=== PATIENT | female | born 1955 | race Caucasian/White ===

== ENCOUNTER 2019-12-22 07:43 | Inpatient (IN) | payer MEDICARE ==
[~2019-12-22] VITALS: Ht 162.6 cm; Wt 85.9 kg
[2019-12-22 07:47] VITALS: BP 173/98
[2019-12-22 08:26] LABS: ABSOLUTE BASOPHILS 0.1 thou/uL (0.0-0.2); ABSOLUTE EOSINOPHILS 0.3 thou/uL (0.0-0.7); ABSOLUTE LYMPHOCYTES 2.6 thou/uL (0.8-5.3); ABSOLUTE MONOCYTES 0.6 thou/uL (0.0-1.2); ABSOLUTE NEUTROPHILS 6.4 thou/uL (1.6-8.1); BASOPHILS 0.9 %; EOSINOPHILS 2.7 %; HEMOGLOBIN 11.1 gm/dL (12.0-15.0); LYMPHOCYTES 26.5 %; MCH 23.8 pg (26.0-34.0); MCHC 30.7 g/dL (28.0-37.0); MCV 77.4 fL (80.0-100.0); MONOCYTES 5.8 %; MPV 7.8 fl. (7.2-11.1); NUCLEATED RBCS 0 /100WBC; PLATELET COUNT* 361 thou/uL (150-400); POLYS 64.1 %; RBC 4.65 mil/uL (4.20-5.00); RDW-CV 18.4 % (10.5-14.5); WBC 9.9 thou/uL (4.0-11.0)
[2019-12-22] MEDS ORDERED: LASIX 40 MG TAB40 MG PO (08:35)
[2019-12-22] MEDS ORDERED: METFORMIN HCL500 M3 PO (08:35)
[2019-12-22] MEDS ORDERED: MAGNESIUM SULF100 MG PO (08:36)
[2019-12-22] MEDS ORDERED: [UNRECOGNIZED DRUG - OTHER] (08:36)
[2019-12-22] MEDS ORDERED: GLYBURIDE 5 MG T5 M1 PO (08:36)
[2019-12-22 08:37] LABS: CALCIUM 8.3 mg/dL (8.5-10.1); CREATININE 1.1 mg/dL (0.6-1.3)
[2019-12-22] MEDS ORDERED: CARVEDILOL25 MG PO (08:39)
[2019-12-22] MEDS ORDERED: DIOVAN (08:39)
[2019-12-22] MEDS ORDERED: BENADRYL25 MG PO (08:40)
[2019-12-22] MEDS ORDERED: PLAVIX 75 MG TA75 MG PO (08:40)
[2019-12-22 08:48] LABS: ALBUMIN 3.2 g/dL (3.4-5.0); MAGNESIUM 1.2 mg/dL (1.8-2.4); TOTAL BILIRUBIN 0.3 mg/dL (<0.1-1.0); TOTAL PROTEIN 7.6 g/dL (6.4-8.2)
[2019-12-22 10:15] VITALS: BP 89/65
[2019-12-22 10:25] VITALS: BP 122/72
[2019-12-22 12:48] LABS: PROTIME 10.6 Seconds (9.20-11.50)
[2019-12-22 16:00] VITALS: BP 121/61
--- NOTE | 2019-12-22 16:45 | EKG ---
[place] [address] ELECTROCARDIOGRAM REPORT Name: VALERIO BECK Room: [address] IN M.R.#: [id number] Admission: 12/22/19 Attend Phys: Demetrio Jameson, Discharge: Date of : 51 Date of Service: 12/22/19 0758 Report #: [id number] THIS REPORT FOR: //name// [facility] ED Test Date: 2019-12-22 Test Time: 07:58:08 Pat Name: VALERIO BECK Department: Room: [facility] Gender: F Clinical Educator: KENN : 1955 Requested By: Ilan Torres Order Number: [id number] MD: Rk Linton Measurements Intervals [place] Rate: 120 P: 69 HI: 90 QRS: 123 QRSD: 116 T: -87 QT: 348 QTc: 492 Interpretive Statements Ventricular-paced rhythm No further analysis attempted due to paced rhythm Compared to ECG 05/14/2008 12:36:21 Sinus rhythm no longer present Electronically Signed On 12-22-2019 16:45:27 ENVIRONMENTAL SERVICES TECHNICIAN by Rk Linton [email or web address] <ELECTRONICALLY SIGNED> By: Rk Linton MD, [facility] 12/22/19 1645 0758 [id number] Rk Linton MD, [facility] /EPI
[2019-12-22 20:30] VITALS: BP 135/78
[2019-12-23] VITALS (7 sets, daily range): BP systolic 109–131; BP diastolic 48–73
[2019-12-23 06:35] LABS: HEMOGLOBIN 10.4 gm/dL (12.0-15.0); MCH 23.4 pg (26.0-34.0); MCHC 30.7 g/dL (28.0-37.0); MCV 76.3 fL (80.0-100.0); MPV 8.3 fl. (7.2-11.1); RBC 4.46 mil/uL (4.20-5.00); RDW-CV 18.6 % (10.5-14.5); WBC 11.1 thou/uL (4.0-11.0)
[2019-12-23 06:44] LABS: ALBUMIN 3.2 g/dL (3.4-5.0); CALCIUM 8.3 mg/dL (8.5-10.1); CREATININE 0.8 mg/dL (0.6-1.3); MAGNESIUM 1.5 mg/dL (1.8-2.4); POTASSIUM 4.2 mmol/L (3.5-5.1); TOTAL BILIRUBIN 0.3 mg/dL (<0.1-1.0); TOTAL PROTEIN 7.4 g/dL (6.4-8.2)
[2019-12-24 00:16] VITALS: BP 116/59
[2019-12-24 03:51] VITALS: BP 113/61
[2019-12-24 04:50] LABS: HEMATOCRIT 33.1 % (37.0-47.0); HEMOGLOBIN 10.3 gm/dL (12.0-15.0); MCH 23.7 pg (26.0-34.0); MCV 76.3 fL (80.0-100.0); MPV 8.3 fl. (7.2-11.1); RBC 4.34 mil/uL (4.20-5.00); RDW-CV 18.6 % (10.5-14.5); WBC 16.7 thou/uL (4.0-11.0)
[2019-12-24 05:15] LABS: ALBUMIN 3.1 g/dL (3.4-5.0); CALCIUM 8.5 mg/dL (8.5-10.1); CREATININE 0.7 mg/dL (0.6-1.3); MAGNESIUM 1.7 mg/dL (1.8-2.4); POTASSIUM 4.2 mmol/L (3.5-5.1); TOTAL BILIRUBIN 0.2 mg/dL (<0.1-1.0); TOTAL PROTEIN 7.1 g/dL (6.4-8.2)
[2019-12-24 08:30] VITALS: BP 129/77
[2019-12-24 12:27] VITALS: BP 144/59
[2019-12-24 17:31] VITALS: BP 130/61
[2019-12-24 21:00] VITALS: BP 129/57
[2019-12-25] VITALS: BP 114/54
[2019-12-25 04:00] VITALS: BP 120/62
[2019-12-25 04:39] LABS: HEMATOCRIT 32.3 % (37.0-47.0); HEMOGLOBIN 10.1 gm/dL (12.0-15.0); MCH 23.8 pg (26.0-34.0); MCHC 31.2 g/dL (28.0-37.0); MCV 76.3 fL (80.0-100.0); MPV 8.2 fl. (7.2-11.1); RBC 4.24 mil/uL (4.20-5.00); RDW-CV 18.7 % (10.5-14.5); WBC 15.2 thou/uL (4.0-11.0)
[2019-12-25 05:03] LABS: CALCIUM 8.4 mg/dL (8.5-10.1); CREATININE 0.8 mg/dL (0.6-1.3); MAGNESIUM 1.7 mg/dL (1.8-2.4); POTASSIUM 3.6 mmol/L (3.5-5.1)
[2019-12-25 08:00] VITALS: BP 132/68
[2019-12-25] MEDS ORDERED: CEFDINIR300 MG PO (12:34)
[2019-12-25] MEDS ORDERED: PREDNISONE 20 M20 MG PO (12:36)
[2019-12-25 12:38] VITALS: BP 124/55
[2019-12-25 13:27] VITALS: BP 124/55
== END 2019-12-25 13:57 | disposition home or self-care (01) | DRG 177 ==
LOC: M.ERS 07:43 → M.ORTHSURG 09:19 → M.TBA-ER 09:19 → M.2W 10:31 → M.ORTHSURG 19:52 → M.2W 12-23 17:40
PROVIDERS: Emergency Medicine Emergency Medical Services; ADMIT Internal Medicine; ATTEND Internal Medicine
PROC: 5A09357 Assistance with Respiratory Ventilation, Less than 24 Consecutive Hours, Continuous Positive Airway Pressure (ICD-10-PCS; principal; 2019-12-22)
DX: J15.6 Pneumonia due to other Gram-negative bacteria (principal); J96.01 Acute respiratory failure with hypoxia; J44.1 Chronic obstructive pulmonary disease with (acute) exacerbation; J44.0 Chronic obstructive pulmonary disease with (acute) lower respiratory infection; E44.1 Mild protein-calorie malnutrition; E87.2 Acidosis; E66.9 Obesity, unspecified; E83.42 Hypomagnesemia; E11.65 Type 2 diabetes mellitus with hyperglycemia; T38.0X5A Adverse effect of glucocorticoids and synthetic analogues, initial encounter; Z20.828 Contact with and (suspected) exposure to other viral communicable diseases; Z88.6 Allergy status to analgesic agent; Z88.0 Allergy status to penicillin; Z68.32 Body mass index [BMI] 32.0-32.9, adult; Z88.8 Allergy status to other drugs, medicaments and biological substances; Z88.1 Allergy status to other antibiotic agents; Y92.89 Other specified places as the place of occurrence of the external cause

== ENCOUNTER 2020-02-24 22:19 | Inpatient (IN) | payer MEDICARE ==
[~2020-02-24] VITALS: Ht 170.2 cm; Wt 88.0 kg
[~2020-02-24 22:19] MED LIST: BENADRYL25 MG PO; CARVEDILOL25 MG PO; CEFDINIR300 MG PO; DIOVAN; GLYBURIDE 5 MG T5 M1 PO; LASIX 40 MG TAB40 MG PO; MAGNESIUM SULF100 MG PO; METFORMIN HCL500 M3 PO; PLAVIX 75 MG TA75 MG PO; PREDNISONE 20 M20 MG PO; [UNRECOGNIZED DRUG - OTHER]
[2020-02-24 22:20] VITALS: BP 148/76
[2020-02-24 22:51] LABS: ABSOLUTE BASOPHILS 0.1 thou/uL (0.0-0.2); ABSOLUTE EOSINOPHILS 0.3 thou/uL (0.0-0.7); ABSOLUTE LYMPHOCYTES 3.6 thou/uL (0.8-5.3); ABSOLUTE MONOCYTES 0.9 thou/uL (0.0-1.2); BASOPHILS 0.7 %; EOSINOPHILS 2.4 %; HEMATOCRIT 32.8 % (37.0-47.0); HEMOGLOBIN 10.3 gm/dL (12.0-15.0); MCH 24.8 pg (26.0-34.0); MCHC 31.3 g/dL (28.0-37.0); MCV 79.3 fL (80.0-100.0); MONOCYTES 7.9 %; MPV 7.5 fl. (7.2-11.1); NUCLEATED RBCS 0 /100WBC; PLATELET COUNT* 372 thou/uL (150-400); RBC 4.14 mil/uL (4.20-5.00); RDW-CV 17.6 % (10.5-14.5); WBC 11.9 thou/uL (4.0-11.0)
[2020-02-24 22:59] LABS: PROTIME 10.7 Seconds (9.20-11.50)
[2020-02-24 23:01] LABS: CALCIUM 8.8 mg/dL (8.5-10.1); POTASSIUM 4.2 mmol/L (3.5-5.1)
[2020-02-24 23:02] LABS: BE -2.3 mmol/L (-2 to +3); pH 7.303 (7.340-7.450)
[2020-02-24 23:04] LABS: PCO2 50.6 mmHg (35.0-45.0); PO2 145.7 mmHg (75.0-100.0)
[2020-02-24 23:12] LABS: ALBUMIN 3.1 g/dL (3.4-5.0); TOTAL BILIRUBIN 0.2 mg/dL (<0.1-1.0)
[2020-02-25 02:31] LABS: URINE BILIRUBIN NEGATIVE (Negative); URINE BLOOD NEGATIVE (Negative); URINE CLARITY CLEAR; URINE COLOR YELLOW; URINE GLUCOSE-RANDOM 3+ (Negative); URINE KETONES NEGATIVE (Negative); URINE LEUKOCYTES-REFLEX NEGATIVE (Negative); URINE NITRITE-REFLEX NEGATIVE (Negative); URINE PROTEIN 2+ (Negative); URINE UROBILINOGEN 0.2 E.U./dl (0.2-1.0)
[2020-02-25 03:15] LABS: BACTERIA-REFLEX 1-9 Few /HPF (None Seen); CASTS None Seen /LPF (None Seen); CRYSTALS None Seen /LPF (None Seen); SQUAMOUS 0-3 Few /LPF (0-3); URINE RBC None Seen /HPF (0-2); URINE WBC-REFLEX 0-5 Rare /HPF (0-5)
[2020-02-25 05:51] VITALS: BP 136/87
[2020-02-25 10:00] VITALS: BP 128/59
--- NOTE | 2020-02-25 10:25 | NUR ---
ER ADMIT TO RM 227 PATIENT TO RM VIA CART O2 3L NC SBA TO BED ORIENTED TO RM AND CALL LIGHT DENIES PAIN AT THIS TIME
[2020-02-25 10:30] VITALS: BP 139/55
[2020-02-25 12:00] VITALS: BP 171/69
--- NOTE | 2020-02-25 14:29 | EKG ---
[place] [address] ELECTROCARDIOGRAM REPORT Name: VALERIO BECK Room: [place] [address] ADM IN M.R.#: [id number] Admission: 02/25/20 Attend Phys: Demetrio Jameson, Discharge: Date of : 51 Date of Service: 02/24/202308 Report #: [id number] THIS REPORT FOR: //name// [facility] ED Test Date: 2020-02-24 Test Time: 23:09:25 Pat Name: VALERIO BECK Department: Room: [facility] Gender: F Mesh Worker: ANANDA : 1955 Requested By: Ibeth Kwon Order Number: [id number] MD: Rk Linton Measurements Intervals [place] Rate: 97 P: 69 ID: 157 QRS: 31 QRSD: 129 T: 95 QT: 401 QTc: 510 Interpretive Statements Atrial-sensed ventricular-paced rhythm No further analysis attempted due to paced rhythm Compared to ECG 12/22/2019 07:58:08 No significant changes Electronically Signed On 02-25-2020 14:29:14 CARTON MARKER MACHINE by Rk Linton [email or web address] <ELECTRONICALLY SIGNED> By: Rk Linton MD, [facility] 02/25/20 1429 2309 [id number] Rk Linton MD, [facility] /EPI
[2020-02-25 16:00] VITALS: BP 125/73
[2020-02-25 20:44] VITALS: BP 138/63
[2020-02-26 00:01] VITALS: BP 126/67
[2020-02-26 04:00] VITALS: BP 109/60
[2020-02-26 04:12] LABS: HEMATOCRIT 31.6 % (37.0-47.0); MCH 24.7 pg (26.0-34.0); MCHC 31.7 g/dL (28.0-37.0); MCV 77.7 fL (80.0-100.0); MPV 7.8 fl. (7.2-11.1); RBC 4.06 mil/uL (4.20-5.00); RDW-CV 17.1 % (10.5-14.5)
[2020-02-26 04:21] LABS: CALCIUM 9.1 mg/dL (8.5-10.1); CREATININE 0.9 mg/dL (0.6-1.3); MAGNESIUM 2.1 mg/dL (1.8-2.4); POTASSIUM 4.7 mmol/L (3.5-5.1)
[2020-02-26 07:30] VITALS: BP 126/44
--- NOTE | 2020-02-26 07:59 | NUR ---
PT IS ABLE TO COMMUNICATE HER NEEDS TO STAFF EFFECTIVELY. SHE HAS DENIED THE NEED FOR PAIN MEDICATION UP TO 0700 THIS MORNING.
--- NOTE | 2020-02-26 10:07 | NUR ---
CM SPOKE TO THE PT TO DISCUSS CM ASSESSMENT. PT A&O, AND INDEPENDENT WITH ADL'S. PT RESIDES AT HOME WITH SPOUSE. PT USES HOME OXYGEN AT 2L AT HOME, AND HAS A NEBULIZER. PT HAS PAST HX OF HH. PT HAS 0 HX OF SNF. CM WILL REMAIN AVAILABLE TO ASSIST AND FOLLOW NEEDED.
[2020-02-26 11:30] VITALS: BP 136/52
--- NOTE | 2020-02-26 13:00 | NUR ---
PT M/S STATUS AT THIS TIME. PUBLIC HEALTH CLINICAL NURSE SPECIALIST DC'D BY UNIT SEC.
--- NOTE | 2020-02-26 13:00 | NUR ---
A&OX 4, PWD. LUNGS DIMINISHED LEFT BASE OTHER EVANS CLEAR. 02 ON AT 3L PER NC. HEART TONES REGULAR, PPM LEFT CHEST. +BS X 4 QUADS. PEDAL PULSES PRESENT NO EDEMA NOTED. SITTING UP IN BED TALKING TO AND WATCHING T.V. NO C/O AT THIS TIME. BENADRYL ORDERED ON APR. CALL LIGHT WITHIN REACH. WILL CONTINUE TO MONITOR.
--- NOTE | 2020-02-26 15:46 | NUR ---
PT TRANSFERING TO ROOM 311 VIA W/C WITH 02 ON AT 3L PER NC. ACCOMPANING HER. ALL BELONGINGS SENT WITH HER. REPORT GIVEN TO DEDRA REIS. REPEAT BLOOD SUGAR 325. NO C/O AT THIS TIME.
[2020-02-26 15:50] VITALS: BP 134/64
--- NOTE | 2020-02-26 18:47 | NUR ---
PATIENT ARRIVED TO UNIT VIA W/C FROM TELE UNIT AT APPROX. 1548. THIS NURSE AGREES WITH REASSESSMENT COMPLETED BY PREVIOUS NURSE. PATIENT'S VSS AND DENIES PAIN AT TIME OF ARRIVAL. PATIENT IS A&OX4, PLEASANT AND COOPERATIVE WITH CARES. O2@3 VIA NASAL CANNULA, LUNG SOUNDS DIMINISHED. PATIENT HAS PACEMAKER. SALINE LOCKED IV LOCATED IN LEFT AC AND IS PATENT. PATIENT CURRENTLY LYING IN BED RESTING. CALL LIGHT AND PERSONAL ITEMS WITHIN REACH.
[2020-02-26 19:52] VITALS: BP 114/57
--- NOTE | 2020-02-27 04:26 | NUR ---
PT A&O, VSS ON 2L NC, PT UP AD [place], NO C/O PAIN THIS SHIFT. PT SLEEPING WELL, HOURLY ROUNDINGS COMPLETE, WILL CONTINUE TO MONITOR.
[2020-02-27] MEDS ORDERED: MUCINEX600 MG PO (07:49)
[2020-02-27] MEDS ORDERED: PROAIR HFA8.5 GM INH (07:49)
[2020-02-27] MEDS ORDERED: PREDNISONE 20 M20 MG PO (07:49)
[2020-02-27] MEDS ORDERED: OMEPRAZOLE40 MG PO (07:49)
[2020-02-27] MEDS ORDERED: ADVAIR 100-501 EACH INH (07:49)
[2020-02-27] MEDS ORDERED: LEVOFLOXACIN500 MG PO (07:49)
[2020-02-27 08:15] VITALS: BP 100/60
[2020-02-27 10:45] VITALS: BP 100/60
[2020-02-27 11:54] VITALS: BP 100/60
--- NOTE | 2020-02-27 12:01 | NUR ---
PATIENT DISCHARGED FROM UNIT AT 1145. ALERT AND ORIENTED X 4. VITAL SIGNS STABLE ON ROOM AIR. UP INDEPENDENTLY IN ROOM. IV DISCONTINUED. DENIES PAIN AND NAUSEA AT THIS TIME. DISCHARGE INSTRUCTIONS AND MEDICATION INFORMATION GIVEN TO PATIENT. LEFT WITH ALL BELONGINGS. PATIENT LEFT WITH VIA CAR.
== END 2020-02-27 11:45 | disposition home or self-care (01) | DRG 189 ==
LOC: M.ERS 22:19 → M.TBA-ER 02-25 01:57 → M.2W 02-25 10:20 → M.3W 02-26 15:48
PROVIDERS: Emergency Medicine; ADMIT Internal Medicine; ATTEND Internal Medicine
DX: J96.21 Acute and chronic respiratory failure with hypoxia (principal); R65.11 Systemic inflammatory response syndrome (SIRS) of non-infectious origin with acute organ dysfunction; J44.1 Chronic obstructive pulmonary disease with (acute) exacerbation; J96.22 Acute and chronic respiratory failure with hypercapnia; Z20.822 Contact with and (suspected) exposure to COVID-19; E66.9 Obesity, unspecified; R91.1 Solitary pulmonary nodule; E11.65 Type 2 diabetes mellitus with hyperglycemia; G47.33 Obstructive sleep apnea (adult) (pediatric); J40 Bronchitis, not specified as acute or chronic; Z95.0 Presence of cardiac pacemaker; Z88.1 Allergy status to other antibiotic agents; Z88.0 Allergy status to penicillin; Z88.8 Allergy status to other drugs, medicaments and biological substances; Z68.30 Body mass index [BMI] 30.0-30.9, adult; Z87.891 Personal history of nicotine dependence; Z79.899 Other long term (current) drug therapy

== ENCOUNTER 2020-03-19 06:16 | Inpatient (IN) | payer MEDICARE ==
[~2020-03-19] VITALS: Ht 167.6 cm; Wt 95.7 kg
[~2020-03-19 06:16] MED LIST changes: +ADVAIR 100-501 EACH INH; +LEVOFLOXACIN500 MG PO; +MUCINEX600 MG PO; +OMEPRAZOLE40 MG PO; +PROAIR HFA8.5 GM INH
[2020-03-19 06:18] VITALS: BP 162/86
[2020-03-19] MEDS ORDERED: TRULICITY1.5 MG/0.5 SUBQ (06:39)
[2020-03-19 06:47] LABS: ABSOLUTE BASOPHILS 0.1 thou/uL (0.0-0.2); ABSOLUTE EOSINOPHILS 0.2 thou/uL (0.0-0.7); ABSOLUTE LYMPHOCYTES 2.3 thou/uL (0.8-5.3); ABSOLUTE NEUTROPHILS 8.5 thou/uL (1.6-8.1); BASOPHILS 0.8 %; HEMATOCRIT 34.4 % (37.0-47.0); HEMOGLOBIN 10.9 gm/dL (12.0-15.0); LYMPHOCYTES 18.8 %; MCH 24.1 pg (26.0-34.0); MCHC 31.7 g/dL (28.0-37.0); MCV 76.1 fL (80.0-100.0); MONOCYTES 8.4 %; MPV 6.9 fl. (7.2-11.1); NUCLEATED RBCS 0 /100WBC; PLATELET COUNT* 595 thou/uL (150-400); RBC 4.52 mil/uL (4.20-5.00); RDW-CV 16.8 % (10.5-14.5); WBC 12.2 thou/uL (4.0-11.0)
[2020-03-19 06:57] LABS: PROTIME 10.8 Seconds (9.20-11.50)
[2020-03-19 06:58] LABS: CALCIUM 8.8 mg/dL (8.5-10.1); CREATININE 0.9 mg/dL (0.6-1.3); POTASSIUM 4.3 mmol/L (3.5-5.1)
[2020-03-19 07:06] LABS: ALBUMIN 2.9 g/dL (3.4-5.0); MAGNESIUM 1.2 mg/dL (1.8-2.4); TOTAL BILIRUBIN 0.1 mg/dL (<0.1-1.0); TOTAL PROTEIN 7.9 g/dL (6.4-8.2)
[2020-03-19 07:18] LABS: URINE BILIRUBIN NEGATIVE (Negative); URINE BLOOD NEGATIVE (Negative); URINE CLARITY CLEAR; URINE COLOR YELLOW; URINE GLUCOSE-RANDOM 3+ (Negative); URINE KETONES NEGATIVE (Negative); URINE LEUKOCYTES-REFLEX NEGATIVE (Negative); URINE NITRITE-REFLEX NEGATIVE (Negative); URINE PROTEIN 2+ (Negative); URINE UROBILINOGEN 0.2 E.U./dl (0.2-1.0)
[2020-03-19 07:44] LABS: BACTERIA-REFLEX None Seen /HPF (None Seen); SQUAMOUS 4-10 Moderate /LPF (0-3); URINE RBC None Seen /HPF (0-2); URINE WBC-REFLEX None Seen /HPF (0-5)
[2020-03-19 07:45] LABS: CASTS None Seen /LPF (None Seen); CRYSTALS None Seen /LPF (None Seen); MUCUS 0-3 Light strn/LPF (None Seen)
--- NOTE | 2020-03-19 08:57 | EKG ---
[place] [address] ELECTROCARDIOGRAM REPORT Name: VALERIO BECK Room: [facility]#: [id number] Admission: 03/19/20 Attend Phys: Discharge: Date of : 51 Date of Service: 03/19/20620 Report #: [id number] THIS REPORT FOR: //name// [facility] ED Test Date: 2020-03-19 Test Time: 06:21:30 Pat Name: VALERIO BECK Department: Room: Gender: F Er Tech: : 1955 Requested By: Ibeth Kwon Order Number: [id number] MD: Jose Hearn Measurements Intervals [place] Rate: 110 P: -1 TX: 132 QRS: 28 QRSD: 120 T: -20 QT: 381 QTc: 516 Interpretive Statements Atrial-sensed ventricular-paced rhythm sinus tachycardia No further analysis attempted due to paced rhythm Compared to ECG 02/24/2020 23:09:25 rate has increased Electronically Signed On 03-19-2020 8:57:09 UNDERCOVER AGENT by Jose Hearn [email or web address] <ELECTRONICALLY SIGNED> By: Jose Hearn MD, [facility] 03/19/20 0857 0 0 Jose Hearn MD, [facility] /EPI
[2020-03-19 12:32] VITALS: BP 112/84
--- NOTE | 2020-03-19 15:00 | NUR ---
PT.KNOWN FROM PREVIOUS ADMISSION. SHE LIVES WITH HER . IS INDEPENDENT BUT NOT VERY ACTIVE. SHE HAS O2 FROM [facility] AT HOME. WEARS AT 2L/NC. ALSO HAS A NEBULIZER. CM WILL FOLLOW FOR ANY DISCHARGE NEEDS.
[2020-03-19 15:10] VITALS: BP 112/84
--- NOTE | 2020-03-19 17:42 | CON ---
[address] [address] CONSULTATION Name: VALERIO BECK Room: [address] M.R.#: [id number] Admission: 03/19/20 Attend Phys: Liliana Valdes MD Discharge: Date of : 51 Report #: [id number] THIS REPORT FOR: cc: Polo Badillo APRN, William R APRN ~ Jose Hearn MD [facility] DATE OF SERVICE: 03/19/2020 CARDIOLOGY CONSULTATION HISTORY OF PRESENT ILLNESS: The patient is a 64-year-old white female, who I was asked to see in the hospital today after she complained of chest pain. The patient has an extensive and complicated past medical history. The history is obtained from the patient and her . The patient states that in 2010, she had a drug-eluting stent placed in the right coronary artery at [facility]. She was found to have evidence of a nonischemic cardiomyopathy that she felt was secondary to a virus. She had a biventricular defibrillator inserted for primary prevention in 2011 in [facility]. She underwent a generator change apparently 5 years later. She has never had a discharge from her defibrillator. The patient notes that when she presented in 2011, she was swollen, but denied a history of chest pain or shortness of breath. She was fatigue at that time. Recently, she was found to have a carotid stenosis of 90%. She was scheduled to have carotid stenting placed in [facility]; that was delayed because of the COVID pandemic. As part of a preop evaluation, she apparently had a pharmacologic nuclear stress test in [facility]. She denied any recent chest pain, shortness of breath, edema, or palpitations. She notes recently if she lies down, she feels a heaviness in her chest. It is not related to exertion or meals. There is no radiation of the pain into her arms. She took some antacid; it did seem to help. She has had no bleeding. Denied any fever or cough. She did have some belching that seem to help. Because of this heaviness, she finally drove herself to the Emergency Room today and is admitted for further evaluation and treatment. PAST MEDICAL HISTORY: Otherwise, she has had cholecystectomy, hysterectomy, carpal tunnel surgery, shoulder surgery, elbow surgery, diabetes, and hyperlipidemia. No history of hypertension. CURRENT MEDICATIONS: Include carvedilol, Lasix, metformin. She was taken off of valsartan in the past because it made her back hurt. She could not tolerate statin drugs in the past because of muscle aches. She also takes clopidogrel. SHE IS ALSO ALLERGIC TO AN ANTIBIOTIC. FAMILY HISTORY: Her [place] [address] CONSULTATION Name: VALERIO BECK Room: [address] MBraeden#: [id number] Admission: 03/19/20 Attend Phys: Liliana Valdes MD Discharge: Date of : 51 Report #: [id number] SOCIAL HISTORY: She is . She and her live in [place]. She does not work at this time. She is not very active. Quit smoking 6 months ago. No alcohol abuse. REVIEW OF SYSTEMS: She apparently had a TIA in the past affecting her eyes. No history of asthma. She has had enlarged liver in the past. No kidney disease. No cancer. No psychiatric illness. No chronic skin condition. PHYSICAL EXAMINATION: GENERAL: Revealed a middle-aged female, who appeared in no distress. VITAL SIGNS: She had a blood pressure of 140/70, pulse is 90. She is afebrile. HEENT: She was anicteric. Conjunctivae pink. Mucous membranes moist. NECK: Veins do not appear distended. Bilateral carotid bruits are heard. CHEST: Clear to auscultation. HEART: Regular rate and rhythm. ABDOMEN: Soft. EXTREMITIES: Had no edema. Posterior tibial pulse 2+ bilaterally. SKIN: Cool and dry. NEUROLOGIC: Nonfocal. RADIOLOGICAL DATA: ECG shows P-wave sensing and ventricular capture. Her workup in the Emergency Room: She had a portable chest x-ray that showed normal heart size, interstitial prominence, defibrillator in place. CT scan of the chest using a PE protocol showed no pulmonary embolus, some atelectasis, mild vascular congestion, emphysematous changes. LABORATORY WORK: Sodium 131, creatinine 0.9, glucose was 254. Troponins all 0.06. BNP 1670. White blood cell count 12.2, hemoglobin 10.9, hematocrit 34.3. Her COVID antigen stat test showed none detected. Urinalysis: Negative for blood and negative for leukocytes. IMPRESSION AND RECOMMENDATIONS: 1. Chest pressure. Atypical for angina. Suspect noncardiac. Before I would perform any additional cardiac evaluation, I would attempt to obtain the recent pharmacologic nuclear stress test that was done in [facility]. 2. Previous stent. The patient does take Plavix. 3. History of cardiomyopathy. The patient is followed at [facility]. She appears stable at this time on a beta-zehra. She could not tolerate an ARB because of back pain. The patient is on Lasix. 4. Diabetes. The patient is on oral medications. 5. Hyperlipidemia. The patient cannot tolerate statin drugs. 6. Previous transient ischemic attack. The patient has carotid stenosis. She is planning on having carotid stenting done in [facility] in the [address] [address] CONSULTATION Name: VALERIO BECK Room: [address] M.R.#: [id number] Admission: 03/19/20 Attend Phys: Liliana Valdes MD Discharge: Date of : 51 Report #: [id number] near future. 7. Previous implantation of a biventricular defibrillator. No recent discharges. 8. Fatigue. 9. Tobacco abuse. The patient recently stopped smoking. 10. Chronic obstructive pulmonary disease. The patient is on home oxygen. <ELECTRONICALLY SIGNED> By: Jose Hearn MD, FACC 03/19/20 1742 1056 [id number] Hearn MD, FAC /nt
[2020-03-19] MEDS ORDERED: ASA81BEC PO (18:14)
[2020-03-19] MEDS ORDERED: KLOR-CON 1010 MEQ PO (18:15)
[2020-03-19] MEDS ORDERED: IMDUR 30 MG TAB30 M1 PO (18:16)
--- NOTE | 2020-03-19 18:56 | NUR ---
PT ADMITTED TO UNIT AT APPROX 1400, REPORT RECIEVED FROM CHATO [place]. ADMISSION ASSESSMENT AND HISTORY CHARTED. PT ACCOMPANIED BY SPOUSE. PT C/O HEADACHE, TYLENOL ADMINISTERED AND EFFECTIVE. MEDICATIONS REVIEWED. PT ADMITTED WITH CHEST PAIN AND HEART FAILURE AND DENIES ANY PAIN OR CHEST DISCOMFORT AT THIS TIME. GLUCOSE 391, SS INSULIN GIVEN ORDERED. PT ORIENTED TO ROOM AND SAFETY MEASURES IMPLEMENTED.
[2020-03-19 20:00] VITALS: BP 147/68
[2020-03-20] VITALS (9 sets, daily range): BP systolic 99–138; BP diastolic 43–75
--- NOTE | 2020-03-20 18:09 | NUR ---
ASSUMED PT CARE AT 0730. PT IS A&OX4, APPEARS VERY ANXIOUS REGARDING NOT KNOWING WHAT IS WRONG WITH HER. PHYSICIAN NOTIFIED AND PRN XANAX ORDERED AND GIVEN WITH EFFECTIVE RESULTS. PT MORE CALM AFTER WE SAT WITH PT ENCOURAGED HER AND ADMINISTERED THE PRN XANAX. PT IN MUCH BETTER SPIRITS THIS AFTERNOON. DR. PRATT AND DR. ONTIVEROS GAVE NEW ORDERS, ALL NEW ORDERS EXPLAINED TO PT AND SPOUSE TO DECREASE ANXIETY. PT THANKED THIS NURSE. PT STATED TYLENOL HELPED WITH THE HEADACHE. PT SITTING UP IN ROOM VISITING WITH SPOUSE. PT VOICES NO PAIN OR DISCOMFORT AT THIS TIME.
[2020-03-21 00:57] VITALS: BP 124/59
[2020-03-21 05:31] LABS: CALCIUM 9.7 mg/dL (8.5-10.1); CREATININE 1.1 mg/dL (0.6-1.3); POTASSIUM 4.2 mmol/L (3.5-5.1)
--- NOTE | 2020-03-21 10:30 | CON ---
[address] [address] CONSULTATION Name: VALERIO BECK Room: [address] IN M.R.#: [id number] Admission: 03/20/20 Attend Phys: Liliana Valdes MD Discharge: Date of : 51 Report #: [id number] THIS REPORT FOR: cc: Polo Badillo APRN, William R APRN ~ Leif Rangel MD DATE OF SERVICE: 03/20/2020 HISTORY OF PRESENT ILLNESS: This is a pleasant 64-year-old female with past medical history significant for COPD, on home oxygen between 3-4 liters, who is presenting for evaluation of chest discomfort. The patient has a known history of Goodson's esophagus and was on omeprazole 40 mg b.i.d. a.c. previously. The patient reports this was discontinued and the patient was placed on Prevacid, which has led to increased reflux symptoms. She reports daily symptoms despite taking the Prevacid. Denies any dysphagia, hematemesis, hematochezia or other alarm symptoms. The patient was also noted to have significant mediastinal adenopathy during her previous visit. PAST MEDICAL HISTORY: The patient has a history of COPD, mediastinal adenopathy. PAST SURGICAL HISTORY: Pacemaker placement. SOCIAL HISTORY: The patient smokes every day. Denies alcohol or recreational drug use. FAMILY HISTORY: No family history of colon cancer or esophageal cancer. REVIEW OF SYSTEMS: Comprehensive 10-point review of systems is negative except for what was mentioned in the HPI. PHYSICAL EXAMINATION: VITAL SIGNS: Temperature 36.2, pulse rate 103, respirations 18, blood pressure 129/75, pulse ox 98%. GENERAL: The patient is alert, awake, oriented x 3. HEENT: Pupils are equal, round, reactive to light and accommodation. Mucous membranes are moist. There is no congestion. LUNGS: Clear to auscultation bilaterally. CARDIOVASCULAR: Rate and rhythm regular, S1, S2 present. ABDOMEN: Soft. There is no distention, guarding or rigidity. EXTREMITIES: Warm, well perfused. There is no edema. SKIN: Warm and dry. LABORATORY DATA: Hemoglobin 10.9, hematocrit 34.4, platelet count 595, [place] [address] CONSULTATION Name: VALERIO BECK Room: [address] IN [facility]#: [id number] Admission: 03/20/20 Attend Phys: Liliana Valdes MD Discharge: Date of : 51 Report #: [id number] count 12.2. INR 1.0. Sodium 131, potassium 4.3, chloride 95, bicarbonate 29, BUN 11, creatinine 0.9. AST 12, ALT 21, alkaline phosphatase 128. ASSESSMENT AND PLAN: Pleasant 64-year-old female with history of chronic obstructive pulmonary disease, who is dependent on home oxygen, presenting with worsening reflux symptoms since her antireflux regimen was changed. I would recommend switching back to PPI, omeprazole 40 mg b.i.d. a.c. Continue Mylanta as needed for now. I will see the patient in the clinic in 2-3 weeks' time and we will set up an outpatient upper GI endoscopy around the same time. I also discussed with Dr. Rea need for EUS to evaluate this mediastinal adenopathy. Thank you for this consultation. <ELECTRONICALLY SIGNED> By: Leif Rangel MD 03/21/20 1030 1018 [id number] Rangel MD /nt
[2020-03-21 11:30] VITALS: BP 115/53
[2020-03-21 16:00] VITALS: BP 126/56
--- NOTE | 2020-03-21 18:47 | NUR ---
ASSUMED CARE OF PT AT 0730. PT IS UP AD [place], ALERT AND ORIENTED X4. PT CONTINUES ON 3L OF O2 PER NC. PT HAD CXR TODAY AND WILL HAVE ECHO TOMORROW. PT STATES THAT THE PRN XANAX HAS BEEN VERY HELPFUOL AND SHE WAS ABLE TO SLEEP LAST NOC FOR THE FIRST TIME IN AWHILE. ASSESSMENT COMPLETED AND ALL MEDICATIONS ADMINISTERED ORDERED. CONTINUE CURRENT PLAN OF CARE.
[2020-03-21 20:00] VITALS: BP 125/64
[2020-03-22] VITALS (8 sets, daily range): BP systolic 119–146; BP diastolic 50–68
[2020-03-22 05:01] LABS: CALCIUM 9.8 mg/dL (8.5-10.1); POTASSIUM 4.7 mmol/L (3.5-5.1)
[2020-03-22 10:32] LABS: BE -3.9 mmol/L (-2 to +3)
[2020-03-22 10:35] LABS: PCO2 152.4 mmHg (35.0-45.0); PO2 144.5 mmHg (75.0-100.0); pH 6.937 (7.340-7.450)
[2020-03-22 10:49] LABS: CALCIUM 9.1 mg/dL (8.5-10.1); CREATININE 1.2 mg/dL (0.6-1.3); POTASSIUM 4.9 mmol/L (3.5-5.1)
[2020-03-22 11:59] LABS: BE 1.3 mmol/L (-2 to +3); pH 7.305 (7.340-7.450)
[2020-03-22 12:03] LABS: PCO2 58.9 mmHg (35.0-45.0)
--- NOTE | 2020-03-22 14:00 | NUR ---
Pt transferred down to ICU 6 post rapid response. was in room and aware. Pt now on bipap. Has pulm edema. DNI
--- NOTE | 2020-03-22 16:19 | NUR ---
Assumed care of pt at 1028 this am[address] Transferred from [facility] c/o soa. Prior RN gave ativan and pt was calm and sleepy on arrival and was not complaining of pain or soa at that time. Dr Valdes and Sonny at bedside as well as Cardiology CONCRETE FORM SETTER AND FINISHER. Heparin drip started. Labs ordered. Pt stabilized.
--- NOTE | 2020-03-22 16:44 | 2DMMODE ---
[place] [address] 2 D/M-MODE ECHOCARDIOGRAM Name: VALERIO BECK Mayela Room: [facility] IN .R.#: [id number] Admission: 03/20/20 Attend Phys: Liliana Valdes, Discharge: Date of : 51 Date of Service: 03/22/20 1644 Report #: [id number] THIS REPORT FOR: cc: Polo Badillo APRN,Polo Linton,Rk Reina MD [facility] ~ APPROVED REPORT Study performed: 03/22/2020 11:18:10 EXAM: Comprehensive 2D, Doppler, and color-flow Echocardiogram Patient Location: In-Patient Room #: 006 Status: routine BSA: 2.00 HR: 112 bpm BP: 140/79 mmHg Rhythm: NSR Other Information Study Quality: Good Indications Chest Pain 2D Dimensions IVSd: 13.29 (7-11mm) LVOT Diam: 19.87 (18-24mm) LVDd: 48.69 mm PWd: 11.23 (7-11mm) Ascending Ao: 25.25 (22-36mm) LVDs: 42.04 (25-40mm) Aortic Root: 27.50 mm Volumes Left Atrial Volume (Systole) LA ESV Index: 25.40 mL/m2 Aortic Valve AoV Peak Adonis.: 1.52 m/s AO Peak Gr.: 9.26 mmHg LVOT Max P.27 mmHg AO Mean Gr.: 4.93 mmHg LVOT Mean P.40 mmHg LVOT Max V: 0.90 m/s AO V2 VTI: 22.89 cm LVOT Mean V: 0.54 m/s VU (VTI): 2.10 cm2 LVOT V1 VTI: 15.51 [place] [address] 2 D/M-MODE ECHOCARDIOGRAM Name: VALERIO BECK Room: [address] IN ..#: [id number] Admission: 03/20/20 Attend Phys: Liliana Valdes, Discharge: Date of : 51 Date of Service: 03/22/20 1644 Report #: [id number] Pulmonary Valve PV Peak Adonis.: 1.12 m/s PV Peak Gr.: 5.06 mmHg Tricuspid Valve RAP Estimate: 5.00 mmHg TR Peak Gr.: 29.71 mmHg RVSP: 34.00 mmHg PA Pressure: 34.00 mmHg Left Ventricle The left ventricle is normal size. There is moderate global hypokinesis of the left ventricle. There is normal left ventricular wall thickness. Left ventricular systolic function is moderately decreased. LVEF is 35%. This study is not technically sufficient to allow evaluation of the LV diastolic function. Right Ventricle The right ventricle is normal size. The right ventricular systolic function is normal. Atria Left atrium is mildly dilated. The right atrium size is normal. Aortic Valve Mild aortic valve sclerosis. No aortic regurgitation is present. There is no aortic valvular stenosis. Mitral Valve The mitral valve is normal in structure. There is no mitral valve regurgitation noted. No evidence of mitral valve stenosis. Tricuspid Valve The tricuspid valve is normal in structure. Trace tricuspid regurgitation. Mild pulmonary hypertension. Pulmonic Valve The pulmonary valve is normal in structure. There is no pulmonic valvular regurgitation. Great Vessels The aortic root is normal in size. IVC is normal in size and collapses >50% with inspiration. Pericardium There is no [place] [address] 2 D/M-MODE ECHOCARDIOGRAM Name: KIRANVALERIO Mayela Room: [address] IN [facility].#: [id number] Admission: 03/20/20 Attend Phys: Liliana Valdes, Discharge: Date of : 51 Date of Service: 03/22/20 1644 Report #: [id number] <Conclusion> The left ventricle is normal size. There is normal left ventricular wall thickness. Left ventricular systolic function is moderately decreased. LVEF is 35%. The right ventricle is normal size. Left atrium is mildly dilated. Mild aortic valve sclerosis. No aortic regurgitation is present. There is no aortic valvular stenosis. The mitral valve is normal in structure. The tricuspid valve is normal in structure. IVC is normal in size and collapses >50% with inspiration. There is no pericardial effusion. There is moderate global hypokinesis of the left ventricle. <ELECTRONICALLY SIGNED> By: Rk Linton MD, [facility] 03/22/20 1644 1644 1644 Rk Linton MD, FACC /INF
--- NOTE | 2020-03-22 17:12 | EKG ---
[place] [address] ELECTROCARDIOGRAM REPORT Name: VALERIO BECK Room: [address] ADM IN M.R.#: [id number] Admission: 03/20/20 Attend Phys: Liliana Valdes, Discharge: Date of : 51 Date of Service: 03/22/20 1005 Report #: [id number] THIS REPORT FOR: //name// [facility] Test Date: 2020-03-22 Test Time: 10:05:49 Pat Name: VALERIO BECK Department: Room: [address] Gender: F Press Technician: Julissa : 1955 Requested By: Liliana Valdes Order Number: [id number] Kika MD: Rk Linton Measurements Intervals [place] Rate: 140 P: -10 MT: 123 QRS: 1 QRSD: 140 T: 89 QT: 346 QTc: 528 Interpretive Statements Ventricular-paced complexes No further rhythm analysis attempted due to paced rhythm Probable left atrial enlargement Left bundle branch block Baseline wander in lead(s) I,II,aVR,aVF,V1,V2 Compared to ECG 03/19/2020 06:21:30 IVCD left persists Atrial-sensed ventricular-paced complex(es) persist Electronically Signed On 03-22-2020 17:12:43 SUPERVISOR DRIED YEAST by Rk Linton [email or web address] <ELECTRONICALLY SIGNED> By: Rk Linton MD, [facility] 03/22/20 1712 1005 1005 Rk Linton MD, [facility] /EPI
--- NOTE | 2020-03-22 17:13 | EKG ---
[place] [address] ELECTROCARDIOGRAM REPORT Name: VALERIO BECK Room: [address] ADM IN M.R.#: [id number] Admission: 03/20/20 Attend Phys: Liliana Valdes, Discharge: Date of : 51 Date of Service: 03/22/20 1041 Report #: [id number] THIS REPORT FOR: //name// [facility] Test Date: 2020-03-22 Test Time: 10:41:41 Pat Name: VALERIO BECK Department: Room: [address] Gender: F Radio Division Lieutenant: MORGAN : 1955 Requested By: Liliana Valdes Order Number: [id number] Reading MD: Rk Linton Measurements Intervals [place] Rate: 129 P: 114 NC: 135 QRS: 132 QRSD: 116 T: -77 QT: 292 QTc: 428 Interpretive Statements Atrial sensed ventricular-paced rhythm No further analysis attempted due to paced rhythm Compared to ECG 03/22/2020 10:05:49 IVCD left persists Electronically Signed On 03-22-2020 17:13:25 FOOD SERVER by Rk Linton [email or web address] <ELECTRONICALLY SIGNED> By: Rk Linton MD, [facility] 03/22/20 1713 1041 1041 Rk Linton MD, [facility] /EPI
--- NOTE | 2020-03-22 18:34 | NUR ---
Dr Valdes requested heparin drip, however, no bolus information was given and there were no orders for bolus on emar. Cardiology paged and this rn received clarification. Boluses are requested. Order put in and faxed to pharmacy. Order for bolus is still not verified, so no bolus given at this time, however rate units/hr has been titrated per protocol.
[2020-03-23] VITALS (27 sets, daily range): BP systolic 115–148; BP diastolic 43–68
[2020-03-23 05:27] LABS: ABSOLUTE LYMPHOCYTES 1.5 thou/uL (0.8-5.3); ABSOLUTE NEUTROPHILS 11.7 thou/uL (1.6-8.1); BASOPHILS 0.2 %; HEMATOCRIT 32.4 % (37.0-47.0); HEMOGLOBIN 9.9 gm/dL (12.0-15.0); LYMPHOCYTES 10.4 %; MCH 23.9 pg (26.0-34.0); MCHC 30.6 g/dL (28.0-37.0); MONOCYTES 7.1 %; MPV 7.2 fl. (7.2-11.1); NUCLEATED RBCS 0 /100WBC; PLATELET COUNT* 529 thou/uL (150-400); POLYS 82.3 %; RBC 4.15 mil/uL (4.20-5.00); RDW-CV 17.4 % (10.5-14.5); WBC 14.2 thou/uL (4.0-11.0)
[2020-03-23 06:44] LABS: ALBUMIN 2.9 g/dL (3.4-5.0); CALCIUM 8.9 mg/dL (8.5-10.1); CREATININE 0.9 mg/dL (0.6-1.3); MAGNESIUM 1.9 mg/dL (1.8-2.4); POTASSIUM 4.1 mmol/L (3.5-5.1); TOTAL BILIRUBIN 0.1 mg/dL (<0.1-1.0)
--- NOTE | 2020-03-23 07:01 | NUR ---
ASSUMED PATIENT CARE AT 1900. ASSESSMENTS COMPLETED CHARTED. CARDIAC MONITORING IN PLACE. PATIENT REMIANS ON HEPARIN DRIP. HOURLY ROUNDING IN PLACE FOR PATIENT SAFETY. FALL PRECAUTIONS IN PLACE FOR PATIENT SAFETY. BED LOCKED AND IN LOWEST POSITION. BED ALARM ON. CLWR.
[2020-03-23 08:04] LABS: BE 7.1 mmol/L (-2 to +3); PO2 87.3 mmHg (75.0-100.0); pH 7.472 (7.340-7.450)
--- NOTE | 2020-03-23 08:11 | NUR ---
PT HAD 0800 ABG SCHEDULED WHILE ON BIPAP. PT HAD BEEN TAKEN OFF OF BIPAP BY RN APPROXIMATELY 45 MINUTES BEFORE RT GOT ABG. ABG DONE ON 3L NC.
--- NOTE | 2020-03-23 14:50 | NUR ---
PT A&O x4, ANXIOUS IN THE AM, XANAX GIVEN. MNPO. HEPARIN GTT CONTD. VSS. O2 SUPPORT WITH NC 3L/MIN. BIPAP OFF SINCE 629. 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
--- NOTE | 2020-03-23 14:54 | NUR ---
ICU rounds: Tele status. Pt out of the room having cath now.
[2020-03-24] VITALS (20 sets, daily range): BP systolic 116–153; BP diastolic 41–62
[2020-03-24 04:29] LABS: HEMATOCRIT 30.7 % (37.0-47.0); HEMOGLOBIN 9.7 gm/dL (12.0-15.0); MCH 24.5 pg (26.0-34.0); MCHC 31.6 g/dL (28.0-37.0); MCV 77.4 fL (80.0-100.0); MPV 6.8 fl. (7.2-11.1); RBC 3.97 mil/uL (4.20-5.00); RDW-CV 17.1 % (10.5-14.5); WBC 11.1 thou/uL (4.0-11.0)
[2020-03-24 05:01] LABS: ALBUMIN 2.8 g/dL (3.4-5.0); CALCIUM 8.9 mg/dL (8.5-10.1); MAGNESIUM 1.8 mg/dL (1.8-2.4); POTASSIUM 4.1 mmol/L (3.5-5.1); TOTAL BILIRUBIN 0.2 mg/dL (<0.1-1.0); TOTAL PROTEIN 6.4 g/dL (6.4-8.2)
[2020-03-24 05:04] LABS: CHOLESTEROL 253 mg/dL (<200); HDL CHOLESTEROL 51 mg/dL (>40); LDL CHOLESTEROL 153 mg/dL (<100); TRIGLYCERIDE 247 mg/dL (<150); VLDL 49 mg/dL (<40)
[2020-03-24 05:09] LABS: TROPONIN-I LEVEL 1.16 ng/mL (<0.06)
[2020-03-24 05:10] LABS: SERUM ASSESSMENT Clear
--- NOTE | 2020-03-24 07:16 | NUR ---
ASSUMED PATIENT CARE AT 1900. ASSESSMENTS COMPLETED CHARTED. CARDIAC MONITORING IN PLACE. NO BM DURING SHIFT. FALL PRECAUTIONS IN PLACE FOR PATIENT SAFETY. BED LOCKED AND IN LOWEST POSITION. HOURLY ROUNDING IN PLACE FOR PATIENT SAFETY. CLWR.
--- NOTE | 2020-03-24 13:58 | NUR ---
ICU rounds: Cath yesterday. Tele status today
--- NOTE | 2020-03-24 14:21 | EKG ---
[place] [address] ELECTROCARDIOGRAM REPORT Name: VALERIO BECK Room: [address] IN M.R.#: [id number] Admission: 03/20/20 Attend Phys: Liliana Valdes, Discharge: Date of : 51 Date of Service: 03/24/20 1057 Report #: [id number] THIS REPORT FOR: //name// [facility] Test Date: 2020-03-24 Test Time: 10:57:35 Pat Name: VALERIO BECK Department: Room: [facility] Gender: F Cell Lead: : 1955 Requested By: Rk Linton Order Number: [id number] Reading MD: Rk Linton Measurements Intervals [place] Rate: 81 P: 43 NH: 179 QRS: 3 QRSD: 140 T: 88 QT: 471 QTc: 547 Interpretive Statements Atrial-sensed ventricular-paced complexes No further analysis attempted due to paced rhythm Compared to ECG 03/22/2020 10:41:41 No significant changes Electronically Signed On 03-24-2020 14:21:18 CHICKEN VACCINATOR by Rk Linton [email or web address] <ELECTRONICALLY SIGNED> By: Rk Linton MD, [facility] 03/24/20 1421 1057 1057 kR Linton MD, [facility] /EPI
--- NOTE | 2020-03-24 14:57 | CARD ---
[address] [address] CARDIAC CATH REPORT Name: VALERIO BECK Room: [address] IN .R.#: [id number] Admission: 03/20/20 Attend Phys: Liliana Valdes MD Discharge: Date of : 51 Report #: [id number] THIS REPORT FOR: cc: Polo Badillo APRN, William R APRN ~ Rk Linton MD [facility] APPROVED REPORT Study performed: 03/23/2020 14:18:42 Patient Details The patient is a 64 year-old female Event Personnel Rk Linton Personal Lines Account Executive, Leelee Aguila RN RN, Ralph Joseph DRIVER/GUIDE Scrub, Stephani Sloan RTR Monitor Procedures Performed Art Access - R femoral artery* Left Heart Cath w/or w/o Coronaries [id number] [facility] RAF Place w/wo Plasty Single LAD [id number] Hemostasis w/ Mynx Indication Non-STEMI , Heart failure Risk Factors Peripheral Vascular Disease, Hypercholesterolemia, Diabetes Previous Procedures/Diagnoses Previous PCI Admission/Lab Medications/Medications given during procedure Oxygen Nasal cannula 2 l per min, 0.9% Sodium Chloride IV 75 ml per hr, Lidocaine Subcut 10 ml, Angiomax IV 13.5 ml, Angiomax Drip IV 32.3 ml per hr, Lasix (Furosemide) IV 40 ml, Ticagrelor PO 180 mg, Aspirin PO 81 mg Procedure Narrative The patient was brought urgently to the Cardiac Catheterization Laboratory and was prepped and draped in a sterile manner. The right femoral was infiltrated with 2% Lidocaine subcutaneous anesthesia. A [place] 6 FR sheath was inserted into the right femoral artery. Coronary angiography was performed using coronary diagnostic catheters. The right coronary system was [place] [address] CARDIAC CATH REPORT Name: VALERIO BECK Mayela Room: [address] IN [facility]#: [id number] Admission: 03/20/20 Attend Phys: Liliana Valdes MD Discharge: Date of : 51 Report #: [id number] a Diagnostic 3DRC catheter. The left coronary system was accessed and visualized with a Diagnostic JL4 catheter. The left ventricle was accessed and visualized with a PIGTAIL catheter. Left ventricular/Aortic Valve gradient assessed via catheter pullback. Pre-demployment femoral angiogram was performed . Closure device was deployed with a 6 Fr Mynx. The patient tolerated the procedure well and there were no complications associated with the procedure. There was no hematoma. Intraoperative Conscious Sedation Case start: 1455 Case end: 1630 Fluoro Time: 14.2 minutes Dose: DAP 464693 cGycm2 1726 mGy Contrast Type and Amount: Visipaque 310 ml Diagnostic Cath Left Main 50% proximal and mid body left main coronary stenosis LAD 90% tubular mid vessel stenosis with a question of local thrombus at the site Circumflex 50% proximal narrowing with 90% mid circumflex stenosis and 50% proximal first marginal stenosis Right Coronary Dominant vessel with 30% ostial and mid vessel narrowing Left Ventriculography Left Ventriculography was not performed. Hemodynamics The aortic pressure is 145/61 mmHg with a mean of 98 mmHg. The left ventricular pressure is 143/18 mmHg with a mean of mmHg. The left ventricular end diastolic pressure is 37 mmHg. There was no gradient across the aortic valve upon pullback. PCI Technique Lesion Anticoagulation was achieved with Angiomax Drip. Patient was preloaded with Angiomax IV 13.5 ml. Percutaneous coronary intervention was performed on the mid left anterior descending artery segment. The lesion stenosis prior to intervention was 90% with FRANCISCO 3 flow. A 6FR XBLAD SH Guide Catheter was used to engage the left ostium. A IG: BMW 190cm Interventional Guidewire was used to cross the [place] [address] CARDIAC CATH REPORT Name: VALERIO BECK Room: [address]#: [id number] Admission: 03/20/20 Attend Phys: Liliana Valdes MD Discharge: Date of : 51 Report #: [id number] A drug-eluting stent [place] RX Stent 2.5X26mm was inserted and inflated up to 16.00atm for 10seconds. Additional Inflation: 18.00atm for 6seconds. POST STENT DEPLOYMENT BALLOON DILATION A Balloon catheter NC Trek RX 2.75 X 12 was inserted and inflated up to 15.00atm for 6seconds. Additional Inflation: 15.00atm for 7seconds. Additional Inflation: 16.00atm for 7seconds. Final angiography reveals 0 % stenosis with FRANCISCO 3 flow. COMMENTS Procedure was technically complex by virtue of the complex multivessel involvement including left main LAD and circumflex stenoses. The patient was in congestive heart failure with acute respiratory failure and left ventricular end-diastolic pressure of 37 mmHg during the test, augmenting the risk significantly. Conclusion 1. Non-STEMI with congestive heart failure and acute respiratory failure prior to and during the procedure 2. Significant multivessel coronary artery disease characterized by the following: A 50% proximal and mid body left main coronary stenosis B 90% tubular mid LAD stenosis with local thrombus suggested at the site C 50% proximal with 90% mid circumflex stenosis with 50% proximal first marginal narrowing D dominant right coronary artery with 30% ostial and mid vessel narrowing 2. Severe elevation of left ventricular diastolic pressure at rest 3. Successful PCI with deployment of drug-eluting stent at the site of 90% mid LAD stenosis with 0% residual narrowing no residual thrombus noted, and FRANCISCO-3 flow [place] [address] CARDIAC CATH REPORT Name: VALERIO BECK Mayela Room: [address]#: [id number] Admission: 03/20/20 Attend Phys: Liliana Valdes MD Discharge: Date of : 51 Report #: [id number] Recommendations Cardiac Risk Reduction Program Aggressive Medical Therapy Medications Administered Aspirin (any) Ticagrelor Diagnostic Cath Approved by: Rk Linton MD Date/Time: 03/24/2020 14:53:23 <ELECTRONICALLY SIGNED> By: Rk Linton MD, [facility] 03/24/20 1457 1457 1457Jovarghese Linton MD, FAC /INF
--- NOTE | 2020-03-24 18:37 | NUR ---
PT ADMITTED TO FLOOR APPROX 1155 FROM ICU. PT IS A&OX4, PLEASANT AND VOICES NO C/O PAIN OR DISCOMFORT. PT 1 DAY POST LAD STENT, NO FEVER OR EDEMA. PT REMAINS ON 3L AND MAINTAINING O2 SATS UPPER 90'S. WINSTON IN PLACE, DRAINING LIGHT YELLOW URINE. PT REQUEST PRN XANAX, WHICH DECREASES HER ANXIETY GREATLY. LUNGS ARE CLEAR, PT STATES SHE FEELS MUCH BETTER ALREADY POST PROCEDURE. SAFETY MEASURES IN PLACE.
[2020-03-25] VITALS (7 sets, daily range): BP systolic 111–143; BP diastolic 37–62
--- NOTE | 2020-03-25 00:59 | NUR ---
PT REFUSED BIPAP. STATED PRESSURE WAS TOO MUCH.
[2020-03-25 04:01] LABS: HEMATOCRIT 31.6 % (37.0-47.0); HEMOGLOBIN 10.1 gm/dL (12.0-15.0); MCH 24.4 pg (26.0-34.0); MCHC 31.8 g/dL (28.0-37.0); MCV 76.7 fL (80.0-100.0); MPV 7.3 fl. (7.2-11.1); RBC 4.12 mil/uL (4.20-5.00); RDW-CV 17.1 % (10.5-14.5); WBC 13.6 thou/uL (4.0-11.0)
--- NOTE | 2020-03-25 06:07 | NUR ---
PT IS ABLE TO COMMUNICATE HER NEEDS TO STAFF EFFECTIVELY. SHE HAS DENIED THE NEED FOR PAIN MEDICATION UP TO THIS TIME. WINSTON REMOVED LAST EVENING; TOLERATED WELL, PT HAS BEEN VOIDING WITHOUT DIFFICULTY UP TO THIS TIME. BLOOD GLUCOSE LEVELS HAVE BEEN HIGH.
[2020-03-25] MEDS ORDERED: TOPROL XL50 MG PO (12:01)
[2020-03-25] MEDS ORDERED: BRILINTA90 MG PO (12:01)
--- NOTE | 2020-03-25 14:46 | NUR ---
ASSUMED PT CARE AT 0730. PT IS A&OX4 PLEASANT AND COOPERERATIVE. PT DENIES ANY PAIN OR DISCOMFORT ONLY A MILD HEADACHE OCCASSIONALLY. PT UP AD [place] IN ROOM, REMAINS ON O2 AT 2L WITH O2 SATS MAINTAINING IN THE UPPER 90'S. PT TO BE DISCHARGED TODAY TO HOME WITH SPOUSE. PT WILL HAVE OTHER STENT PLACED ON OUTPATIENT BASIS. ASSESSMENT COMPLETED ALL MEDICATIONS ADMINISTERED ORDERED. DISCHARGE INSTRUCTIONS REVIEWED WITH PT. HEART MONITOR REMOVED AND BOTH IV'S. PT TRANSPORTED BY STAFF VIA WC AND DISCHARGED WITH SPOUSE.
--- NOTE | 2020-03-25 15:14 | NUR ---
Pt discharged to home today. Triology to be delivered to Pt's home this evening.
== END 2020-03-25 14:59 | disposition home or self-care (01) | DRG 246 ==
LOC: M.ERS 06:16 → M.TBA-ER 09:29 → M.2W 13:10 → M.ICU 03-20 08:21 → M.2W 03-20 08:21 → M.ICU 03-22 10:28 → M.2W 03-23 15:00 → M.ICU 03-23 15:21 → M.2W 03-23 15:22 → M.ICU 03-23 16:33 → M.2W 03-24 12:00
PROVIDERS: Emergency Medicine; Internal Medicine; Internal Medicine Critical Care Medicine; ADMIT Internal Medicine; ATTEND Internal Medicine
PROC: 4A023N7 Measurement of Cardiac Sampling and Pressure, Left Heart, Percutaneous Approach (ICD-10-PCS; 2020-03-19)
PROC: 027034Z Dilation of Coronary Artery, One Artery with Drug-eluting Intraluminal Device, Percutaneous Approach (ICD-10-PCS; 2020-03-19)
PROC: 5A0935A Assistance with Respiratory Ventilation, Less than 24 Consecutive Hours, High Flow/Velocity Cannula (ICD-10-PCS; principal; 2020-03-22)
PROC: 5A09357 Assistance with Respiratory Ventilation, Less than 24 Consecutive Hours, Continuous Positive Airway Pressure (ICD-10-PCS; principal; 2020-03-22)
PROC: B211YZZ Fluoroscopy of Multiple Coronary Arteries using Other Contrast (ICD-10-PCS; 2020-03-23)
PROC: 5A09357 Assistance with Respiratory Ventilation, Less than 24 Consecutive Hours, Continuous Positive Airway Pressure (ICD-10-PCS; 2020-03-23)
PROC: B41FYZZ Fluoroscopy of Right Lower Extremity Arteries using Other Contrast (ICD-10-PCS; 2020-03-23)
PROC: 5A09357 Assistance with Respiratory Ventilation, Less than 24 Consecutive Hours, Continuous Positive Airway Pressure (ICD-10-PCS; 2020-03-24)
PROC: 5A09357 Assistance with Respiratory Ventilation, Less than 24 Consecutive Hours, Continuous Positive Airway Pressure (ICD-10-PCS; 2020-03-25)
DX: I21.4 Non-ST elevation (NSTEMI) myocardial infarction (principal); J15.6 Pneumonia due to other Gram-negative bacteria; J96.21 Acute and chronic respiratory failure with hypoxia; I50.23 Acute on chronic systolic (congestive) heart failure; J44.1 Chronic obstructive pulmonary disease with (acute) exacerbation; J44.0 Chronic obstructive pulmonary disease with (acute) lower respiratory infection; Z20.822 Contact with and (suspected) exposure to COVID-19; E66.9 Obesity, unspecified; E78.5 Hyperlipidemia, unspecified; F17.210 Nicotine dependence, cigarettes, uncomplicated; R91.8 Other nonspecific abnormal finding of lung field; I65.21 Occlusion and stenosis of right carotid artery; F41.9 Anxiety disorder, unspecified; R91.1 Solitary pulmonary nodule; R59.1 Generalized enlarged lymph nodes; D64.9 Anemia, unspecified; I25.5 Ischemic cardiomyopathy; I25.10 Atherosclerotic heart disease of native coronary artery without angina pectoris; K21.9 Gastro-esophageal reflux disease without esophagitis; E11.65 Type 2 diabetes mellitus with hyperglycemia; Z90.710 Acquired absence of both cervix and uterus; Z95.5 Presence of coronary angioplasty implant and graft; Z95.0 Presence of cardiac pacemaker; Z68.34 Body mass index [BMI] 34.0-34.9, adult; Z88.1 Allergy status to other antibiotic agents; Z88.0 Allergy status to penicillin; Z88.8 Allergy status to other drugs, medicaments and biological substances; Z79.82 Long term (current) use of aspirin; Z79.899 Other long term (current) drug therapy; Z86.73 Personal history of transient ischemic attack (TIA), and cerebral infarction without residual deficits

== ENCOUNTER 2020-04-07 07:19 | Observation (INO) | payer MEDICARE ==
[~2020-04-07] VITALS: Ht 167.6 cm; Wt 89.4 kg
[2020-04-07] VITALS (15 sets, daily range): BP systolic 100–123; BP diastolic 45–84
[~2020-04-07 07:19] MED LIST changes: +ASA81BEC PO; +BRILINTA90 MG PO; +C-10001000 MG PO; +COSOPT PF EYE1 EACH EA. EYE; +FISH OIL 1,001000 M3 PO; +IMDUR 30 MG TAB30 M1 PO; +KLOR-CON 1010 MEQ PO; +NITROSTAT0.4 M1 PO; +TOPROL XL50 MG PO; +TRESIBA FL100 UNIT/1 SUBQ; +TRULICITY1.5 MG/0.5 SUBQ; +VITAMIN D31250 MC1 PO
[2020-04-07 08:10] LABS: HEMATOCRIT 31.8 % (37.0-47.0); HEMOGLOBIN 10.1 gm/dL (12.0-15.0); MCH 24.8 pg (26.0-34.0); MCHC 31.8 g/dL (28.0-37.0); MCV 77.9 fL (80.0-100.0); MPV 7.5 fl. (7.2-11.1); RBC 4.08 mil/uL (4.20-5.00); RDW-CV 17.7 % (10.5-14.5); WBC 9.4 thou/uL (4.0-11.0)
[2020-04-07 08:20] LABS: APTT 27.4 Seconds (25.0-31.3); PROTIME 10.6 Seconds (9.20-11.50)
[2020-04-07 08:21] LABS: ALBUMIN 3.1 g/dL (3.4-5.0); ALKALINE PHOSPHATASE 123 U/L (46-116); ANION GAP 8 mmol/L (7-16); BUN 13 mg/dL (7-18); CALCIUM 9.5 mg/dL (8.5-10.1); CHLORIDE 92 mmol/L (98-107); CHOLESTEROL 261 mg/dL (<200); CO2 31 mmol/L (21-32); GLUCOSE 331 mg/dL (70-99); HDL CHOLESTEROL 45 mg/dL (>40); LDL CHOLESTEROL 181 mg/dL (<100); POTASSIUM 4.3 mmol/L (3.5-5.1); SERUM ASSESSMENT Clear; SGOT 13 U/L (15-37); SGPT 21 U/L (30-65); SODIUM 131 mmol/L (136-145); TC:HDL 5.8 Ratio (Not establshd); TOTAL BILIRUBIN 0.2 mg/dL (<0.1-1.0); TOTAL PROTEIN 8.2 g/dL (6.4-8.2); TRIGLYCERIDE 177 mg/dL (<150); VLDL 35 mg/dL (<40)
--- NOTE | 2020-04-07 15:34 | EKG ---
[place] [address] ELECTROCARDIOGRAM REPORT Name: VALERIO BECK Room: [address] M.R.#: [id number] Admission: 04/07/20 Attend Phys: Mayela Mendoza Discharge: Date of : 51 Date of Service: 04/07/20804 Report #: [id number] THIS REPORT FOR: //name// [facility] Test Date: 2020-04-07 Test Time: 08:05:43 Pat Name: VALERIO BECK Department: Room: [facility] Gender: F Autos Disassembler: : 1955 Requested By: Rk Linton Order Number: [id number] Reading MD: Rk Linton Measurements Intervals [place] Rate: 66 P: 52 FL: 133 QRS: 109 QRSD: 135 T: 108 QT: 466 QTc: 489 Interpretive Statements Atrial-sensed ventricular-paced rhythm No further analysis attempted due to paced rhythm Artifact in lead(s) I,III,aVR,aVL,V1,V3,V4,V5,V6 Compared to ECG 03/24/2020 10:57:35 No significant changes Electronically Signed On 04-07-2020 15:33:52 CHILDREN'S TUTOR NURSERY by Rk Linton [email or web address] <ELECTRONICALLY SIGNED> By: Rk Linton MD, [facility] 04/07/20 1533 4 4 Rk Linton MD, [facility] /EPI
--- NOTE | 2020-04-07 15:36 | EKG ---
[place] [address] ELECTROCARDIOGRAM REPORT Name: VALERIO BECK Room: [address] M.R.#: [id number] Admission: 04/07/20 Attend Phys: Mayela Mendoza Discharge: Date of : 51 Date of Service: 04/07/20 1126 Report #: [id number] THIS REPORT FOR: //name// [facility] Test Date: 2020-04-07 Test Time: 11:26:23 Pat Name: VALERIO BECK Department: Room: [facility] Gender: F Lamp Stack Developer: : 1955 Requested By: Rk Linton Order Number: [id number] Kika MD: Rk Linton Measurements Intervals [place] Rate: 85 P: 52 GA: 160 QRS: 22 QRSD: 130 T: 102 QT: 425 QTc: 506 Interpretive Statements Atrial-sensed ventricular-paced rhythm No further analysis attempted due to paced rhythm Compared to ECG 04/07/2020 08:05:43 No significant changes Electronically Signed On 04-07-2020 15:36:35 GROUNDS PERSON by Rk Linotn [email or web address] <ELECTRONICALLY SIGNED> By: Rk Linton MD, [facility] 04/07/20 1536 1126 1126 Rk Linton MD, [facility] /EPI
--- NOTE | 2020-04-07 16:00 | CARD ---
[address] [address] CARDIAC CATH REPORT Name: VALERIO BECK Room: [address] Dana[place] M.R.#: [id number] Admission: 04/07/20 Attend Phys: Rk Linton MD, Discharge: Date of : 51 Report #: [id number] THIS REPORT FOR: cc: Polo Badillo APRN, William R APRN ~ Rk Linton MD [facility] APPROVED REPORT Study performed: 04/07/2020 08:40:57 Patient Details Patient Status: Out-Patient Room #: The patient is a 64 year-old female Event Personnel Rk Linton Metalizer, Leelee Aguila RN Java Security Engineer, Viktoriya Breen RTR Monitor, Ralph Joseph Scrub Procedures Performed Art Access - R femoral artery* Left Heart Cath w/or w/o Coronaries [id number] [facility] RAF w/Atherectomy Single CIRC [id number] [facility] Hemostasis w/ Mynx Indication Unstable angina Risk Factors Obesity, Hypercholesterolemia, Hypertension Previous Procedures/Diagnoses Previous CVAPrevious PCI, Previous SD Admission/Lab Medications/Medications given during procedure Angiomax IV 12 ml, Angiomax Drip IV 27.4 ml per hr, Nitroglycerin IC 150 mcg, Ticagrelor PO 90 mg Procedure Narrative The patient was brought electively to the Cardiac Catheterization Laboratory and was prepped and draped in a sterile manner. The right femoral was infiltrated with 2% Lidocaine subcutaneous anesthesia. A [place] 6 FR sheath was inserted into the right femoral artery. Coronary angiography was performed using coronary diagnostic catheters. The left coronary system was [place] [address] CARDIAC CATH REPORT Name: VALERIO BECK Room: [address] M.R.#: [id number] Admission: 04/07/20 Attend Phys: Rk Linton MD, Discharge: Date of : 51 Report #: [id number] a 6F JL 4 SH Guide catheter. The left ventricle was accessed and visualized with a 6F Pigtail catheter. Left ventricular/Aortic Valve gradient assessed via catheter pullback. Pre-demployment femoral angiogram was performed . Closure device was deployed with a 6 Fr Mynx. The patient tolerated the procedure well and there were no complications associated with the procedure. There was no hematoma. Intraoperative Conscious Sedation Sedation start time: 09:36 Case end Time: 10:50 Fentanyl 50 mcg Versed 2 mg Fluoro Time: 20.8 minutes Dose: DAP 461438 cGycm2 2545 mGy Contrast Type and Amount: Visipaque 280 ml Diagnostic Cath Left Main 40% mid body narrowing LAD 30% proximal narrowing followed by widely patent mid LAD stent Circumflex Prominent though nondominant vessel with 40% proximal narrowing and 90% tubular mid vessel stenosis with 40% first marginal narrowing Right Coronary Moderate size dominant vessel with 30% proximal and mid vessel narrowing as recently defined Left Ventriculography Left Ventriculography was not performed. Hemodynamics The aortic pressure is 117/51 mmHg with a mean of 76 mmHg. The left ventricular pressure is 116/7 mmHg with a mean of mmHg. The left ventricular end diastolic pressure is 16 mmHg. There was no gradient across the aortic valve upon pullback. PCI Technique Lesion Anticoagulation was achieved with Angiomax. Patient was preloaded with Angiomax IV 12 ml. Percutaneous coronary intervention was performed on the mid circumflex artery segment. The lesion stenosis prior to intervention was 90% with FRANCISCO 3 flow. A 6F JL 4 SH Guide Catheter was used to engage the lm ostium. A [employer] 190cm and [employer] Flex 180cm Interventional Guidewire was used [place] [address] CARDIAC CATH REPORT Name: VALERIO BECK Room: [address] M.Charisse#: [id number] Admission: 04/07/20 Attend Phys: Rk Linton MD, Discharge: Date of : 51 Report #: [id number] BALLOON DILATION A Balloon catheter Mini Trek RX 2.0 X 15 was inserted and inflated up to 14.00atm for 10seconds. Additional Inflation: 18.00atm for 11seconds. A 2.25 x 12 NC TREK RX balloon catheter was inserted and inflated up to 16 breanne for 11 seconds; 18 breanne for 9 seconds; 20 breanne for 12 seconds. An AngioSculpt PTCA 2.5 x 10 scoring balloon was inserted and inflated up to 6 breanne for 9 seconds; 6 beranne for 9 seconds. STENT DEPLOYMENT A drug-eluting stent [place] RX Stent 2.88P95jk was inserted and inflated up to 14.00atm for 10seconds. Additional Inflation: 12.00atm for 10seconds. A drug eluting stent [place] RX Stent 2.0 x 12mm was inserted and inflated up to 10 breanne for 10 seconds; 14 breanne for 11 seconds. Final angiography reveals 0 % stenosis with FRANCISCO 3 flow. Conclusion 1. Significant coronary artery characterized by the following: A 30% proximal LAD narrowing followed by widely patent mid LAD stent B 40% proximal circumflex narrowing followed by 90% tubular mid vessel stenosis with 40% first marginal narrowing C 30% proximal and mid vessel narrowing of the moderate size dominant right coronary artery as recently defined 2. Mild elevation of left ventricular diastolic pressure at rest 3. Successful PCI with atherotomy/atherectomy and stenting of the mid circumflex with 0% residual narrowing following stent deployment and FRANCISCO-3 flow to the distal vessel Recommendations Cardiac Risk Reduction Program Aggressive Medical Therapy Medications Administered Aspirin (any) [place] [address] CARDIAC CATH REPORT Name: VALERIO BECK Room: [address] Danae MBraeden#: [id number] Admission: 04/07/20 Attend Phys: Rk Linton MD, Discharge: Date of : 51 Report #: [id number] Diagnostic Cath Approved by: Rk Linton MD Date/Time: 04/07/2020 15:59:34 <ELECTRONICALLY SIGNED> By: Rk Linton MD, [facility] 04/07/201599 99 99Jovarghese Linton MD, FAC /INF
[2020-04-08 00:35] VITALS: BP 136/43
[2020-04-08 04:19] VITALS: BP 136/57
[2020-04-08 04:24] LABS: HEMATOCRIT 29.8 % (37.0-47.0); HEMOGLOBIN 9.6 gm/dL (12.0-15.0); MCH 25.4 pg (26.0-34.0); MCHC 32.1 g/dL (28.0-37.0); MPV 7.7 fl. (7.2-11.1); RBC 3.78 mil/uL (4.20-5.00); RDW-CV 17.6 % (10.5-14.5)
[2020-04-08 04:53] LABS: ALBUMIN 2.7 g/dL (3.4-5.0); POTASSIUM 3.8 mmol/L (3.5-5.1); TOTAL BILIRUBIN 0.2 mg/dL (<0.1-1.0); TOTAL PROTEIN 7.2 g/dL (6.4-8.2)
[2020-04-08 04:58] LABS: TROPONIN-I LEVEL 3.74 ng/mL (<0.06)
[2020-04-08 08:00] VITALS: BP 120/48
--- NOTE | 2020-04-08 09:45 | EKG ---
[place] [address] ELECTROCARDIOGRAM REPORT Name: VALERIO BECK Room: [address]R.#: [id number] Admission: 04/07/20 Attend Phys: Mayela Mendoza Discharge: Date of : 51 Date of Service: 04/08/20 0455 Report #: [id number] THIS REPORT FOR: //name// [facility] Test Date: 2020-04-08 Test Time: 04:55:03 Pat Name: VALERIO BECK Department: Room: [facility] Gender: F Caseworker Protective Services: TR : 1955 Requested By: Rk Linton Order Number: [id number] Kika MD: George Jorge Measurements Intervals [place] Rate: 85 P: 64 GA: 154 QRS: 13 QRSD: 130 T: 143 QT: 404 QTc: 481 Interpretive Statements Atrial-sensed ventricular-paced rhythm No further analysis attempted due to paced rhythm Compared to ECG 04/07/2020 11:26:23 No significant changes Electronically Signed On 04-08-2020 9:45:39 DIRECTOR OF ENGINEERING by George Jorge [email or web address] <ELECTRONICALLY SIGNED> By: George Jorge MD, FACC 04/08/20 0945 0455 0455 George Jorge MD, [facility] /EPI
[2020-04-08 09:59] VITALS: BP 120/48
--- NOTE | 2020-04-10 12:26 | D ---
[address] [address] DISCHARGE SUMMARY Name: VALERIO BECK Room: [address] [place] Uribe#: [id number] Admission: 04/07/20 Attend Phys: Rk Linton MD, Discharge: 04/08/20 Date of : 51 Report #: [id number] THIS REPORT FOR: cc: Polo Badillo APRN, William R APRN ~ Rk Linton MD [facility] DATE OF SERVICE: 04/08/2020 FINAL DISCHARGE DIAGNOSES: 1. Unstable angina. 2. Coronary artery disease. 3. Status post recent non-ST elevation myocardial infarction. 4. Status post prior percutaneous coronary intervention to the left anterior descending with atherectomy and stenting of the circumflex on 04/07/2020. 5. Hypertension. 6. Ischemic cardiomyopathy. 7. Chronic obstructive pulmonary disease. 8. Diabetes mellitus. PROCEDURES: 04/07/2020 -- left heart catheterization, selective coronary arteriography and atherectomy with stenting of the circumflex. HISTORY AND HOSPITAL COURSE: The patient is a pleasant 64-year-old female who presented approximately 10 days ago with acute coronary syndrome and congestive heart failure. She had evidence for non-ST segment elevation myocardial infarction. She ultimately was placed on BiPAP in emergent circumstance, underwent cardiac catheterization with definition of 90% tubular mid LAD stenosis with local thrombus at the site. I placed 1 drug-eluting stent in the LAD and there was clinical improvement with gradual resolution of the heart failure. She was also noted to have 40-50% left main and 90% circumflex stenosis. These were not approached in the acute setting. She had done well with clinical improvement when I saw her in the office last week. There has been some recurrent angina though much milder than experienced previously. In this setting, I performed recatheterization on 04/07/2020, which revealed a widely patent LAD stent with 40% left main coronary artery narrowing and 90% mid circumflex stenosis. I performed arthrotomy/atherectomy with deployment of a drug-eluting stent in the mid circumflex and 1 just distal to the LAD with a 0% residual narrowing and FRANCISCO 3 flow to the distal vessel. The patient had a minimal increase in troponin to 3.74. She had no chest pain in the morning post-procedure. EKG continued [place] [address] DISCHARGE SUMMARY Name: VALERIO BECK Room: [address] [place] Uribe#: [id number] Admission: 04/07/20 Attend Phys: Rk Linton MD, Discharge: 04/08/20 Date of : 51 Report #: [id number] LABORATORY DATA: On 04/08/2020 revealed a sodium 137, potassium 3.8, BUN 11, creatinine 1.5, glucose 250. Hemoglobin 9.8, white blood cell count of 9000, platelets 359,000. Cholesterol 261, triglycerides 177, HDL 45, LDL 181 (the patient has been statin INTOLERANT). She ambulated in the hallways without difficulty and there was good hemostasis at the right femoral site of catheterization. DISCHARGE MEDICATIONS: The patient was discharged to home on metformin 1000 mg b.i.d. dosage with first dose to be on 04/09/2020 in the p.m., furosemide 40 mg daily, glyburide 5 mg daily, magnesium 250 mg daily, omeprazole 40 mg daily, enteric-coated aspirin 81 mg daily, potassium chloride 10 mEq daily, Brilinta 90 mg b.i.d., ascorbic acid 1000 mg daily, dorzolamide and timolol eyedrops bilaterally b.i.d., fish oil 1000 mg capsule daily, Tresiba insulin 10 units subcutaneously daily, Imdur 30 mg daily, p.r.n. sublingual nitroglycerin, and vitamin D3 2000 units p.o. daily. The patient is scheduled to return to see me in the office on 05/13/2020 at 1340 hours at [facility]. Therefore, the patient is discharged to home in stable condition on the aforementioned medications with followup as described above. <ELECTRONICALLY SIGNED> By: Rk Linton MD, FACC 04/10/20 1226 0906 0923Rk Linton MD, FACC /nt
== END 2020-04-08 10:14 | disposition home or self-care (01) ==
LOC: M.CL 07:19 → M.TBA-CV 10:46 → M.2W 11:44
PROVIDERS: ADMIT Internal Medicine; ATTEND Internal Medicine
DX: I25.110 Atherosclerotic heart disease of native coronary artery with unstable angina pectoris (principal); Z20.822 Contact with and (suspected) exposure to COVID-19; I25.5 Ischemic cardiomyopathy; I25.2 Old myocardial infarction; I10 Essential (primary) hypertension; E11.9 Type 2 diabetes mellitus without complications; J44.9 Chronic obstructive pulmonary disease, unspecified; Z88.0 Allergy status to penicillin; Z88.1 Allergy status to other antibiotic agents; Z88.6 Allergy status to analgesic agent

== ENCOUNTER → 2020-04-20 | Outpatient (CLI) | payer MEDICARE ==
--- NOTE | 2020-04-26 01:29 | PF ---
[address] [address] PULMONARY FUNCTION REPORT Name: VALERIO BECK Room: [facility]#: [id number] Admission: 04/20/20 Attend Phys: Lopez Dennis MD Discharge: Date of : 51 Report #: [id number] THIS REPORT FOR: cc: Polo Badillo APRN, William R APRN ~ Lopez Dennis MD DATE OF SERVICE: 04/20/2020 The FEV1/FVC ratio is normal at 82% with a forced vital capacity decreased to 62%. The FEV1 is also decreased to 67% and the PKM11-50 is decreased to 66%. After the administration of a bronchodilator, there is a 12% increase in FVC, which does exceed 200 mL. There is no other significant change in spirometry after the administration of a bronchodilator. The patient's post-bronchodilator FEV1 is noted to be 1.88 liters. The total lung capacity is markedly increased to 227% with a residual volume markedly increased to 365%. The DLCO as adjusted for hemoglobin is decreased to 29%. The respiratory therapist commented that there was a question regarding whether the patient had inability to meet ATS criteria or standards during this test. IMPRESSION: 1. There is a restrictive pattern on spirometry considering a significant increase in forced vital capacity, it does appear that there is underlying obstruction likely moderate. It will be possible that there is a component of poor effort or neuromuscular weakness as well. 2. There is hyperinflation present with a marked increase in lung volumes as described above, but there is a question regarding whether this test met ATS standards. 3. The DLCO as adjusted for hemoglobin is markedly decreased to 29%. <ELECTRONICALLY SIGNED> By: Lopez Dennis MD 04/26/20 0129 0056 0111Amissy Dennis MD /nt
== END ==
LOC: M.PUL 10:30
PROVIDERS: ATTEND Internal Medicine Critical Care Medicine
DX: J44.9 Chronic obstructive pulmonary disease, unspecified (principal)

== ENCOUNTER 2020-06-06 17:51 | Inpatient (IN) | payer MEDICARE ==
[~2020-06-06] VITALS: Ht 165.1 cm; Wt 72.6 kg
[2020-06-06 17:52] VITALS: BP 146/42
[2020-06-06 18:59] LABS: ABSOLUTE BASOPHILS 0.1 thou/uL (0.0-0.2); ABSOLUTE EOSINOPHILS 0.3 thou/uL (0.0-0.7); ABSOLUTE LYMPHOCYTES 2.5 thou/uL (0.8-5.3); ABSOLUTE MONOCYTES 0.9 thou/uL (0.0-1.2); ABSOLUTE NEUTROPHILS 5.4 thou/uL (1.6-8.1); BASOPHILS 0.8 %; HEMATOCRIT 29.6 % (37.0-47.0); HEMOGLOBIN 9.3 gm/dL (12.0-15.0); LYMPHOCYTES 27.4 %; MCH 24.2 pg (26.0-34.0); MCHC 31.5 g/dL (28.0-37.0); MCV 76.8 fL (80.0-100.0); MPV 7.3 fl. (7.2-11.1); NUCLEATED RBCS 0 /100WBC; PLATELET COUNT* 318 thou/uL (150-400); POLYS 58.8 %; RBC 3.85 mil/uL (4.20-5.00); RDW-CV 17.6 % (10.5-14.5); WBC 9.1 thou/uL (4.0-11.0)
[2020-06-06 19:07] LABS: CALCIUM 9.4 mg/dL (8.5-10.1); CREATININE 1.1 mg/dL (0.6-1.3)
[2020-06-06 19:10] LABS: APTT 23.6 Seconds (25.0-31.3); INR 0.9; PROTIME 9.8 Seconds (9.20-11.50)
[2020-06-06 19:17] LABS: ALBUMIN 3.4 g/dL (3.4-5.0); TOTAL BILIRUBIN 0.3 mg/dL (<0.1-1.0); TOTAL PROTEIN 7.7 g/dL (6.4-8.2)
[2020-06-06 23:52] VITALS: BP 122/46
[2020-06-07] VITALS (8 sets, daily range): BP systolic 106–159; BP diastolic 29–73
--- NOTE | 2020-06-07 11:16 | EKG ---
[place] [address] ELECTROCARDIOGRAM REPORT Name: VALERIO BECK Room: [place] [address] ADM IN .R.#: [id number] Admission: 06/06/20 Attend Phys: Neil Mcghee, Discharge: Date of : 51 Date of Service: 06/06/20 1806 Report #: [id number] THIS REPORT FOR: //name// [facility] ED Test Date: 2020-06-06 Test Time: 18:06:25 Pat Name: VALERIO BECK Department: Room: [facility] Gender: F Tongue Lining Stitcher: CCD : 1955 Requested By: Ilan Torres Order Number: [id number] MD: Jose Hearn Measurements Intervals [place] Rate: 70 P: 34 AR: 163 QRS: 5 QRSD: 127 T: 95 QT: 449 QTc: 485 Interpretive Statements Atrial-sensed ventricular-paced rhythm No further analysis attempted due to paced rhythm Baseline wander in lead(s) I,II,aVR,V2 Compared to ECG 04/08/2020 04:55:03 No significant changes Electronically Signed On 06-07-2020 11:16:43 CDT by Jose Hearn [email or web address] <ELECTRONICALLY SIGNED> By: Jose Hearn MD, FAC 06/07/20 1116 05 05 Jose Hearn MD, [facility] /EPI
[2020-06-08 04:00] VITALS: BP 100/50
[2020-06-08 04:36] LABS: ABSOLUTE BASOPHILS 0.1 thou/uL (0.0-0.2); ABSOLUTE EOSINOPHILS 0.3 thou/uL (0.0-0.7); ABSOLUTE LYMPHOCYTES 2.3 thou/uL (0.8-5.3); ABSOLUTE MONOCYTES 0.9 thou/uL (0.0-1.2); ABSOLUTE NEUTROPHILS 4.7 thou/uL (1.6-8.1); BASOPHILS 0.8 %; EOSINOPHILS 3.9 %; HEMATOCRIT 28.9 % (37.0-47.0); MCH 24.2 pg (26.0-34.0); MCHC 31.3 g/dL (28.0-37.0); MCV 77.5 fL (80.0-100.0); MONOCYTES 10.8 %; MPV 7.7 fl. (7.2-11.1); NUCLEATED RBCS 0 /100WBC; PLATELET COUNT* 334 thou/uL (150-400); POLYS 56.5 %; RBC 3.73 mil/uL (4.20-5.00); RDW-CV 17.2 % (10.5-14.5); WBC 8.3 thou/uL (4.0-11.0)
[2020-06-08 04:45] LABS: CALCIUM 9.4 mg/dL (8.5-10.1); POTASSIUM 4.1 mmol/L (3.5-5.1)
[2020-06-08 08:00] VITALS: BP 105/40
[2020-06-08 11:52] VITALS: BP 141/56
[2020-06-08 12:37] VITALS: BP 141/56
--- NOTE | 2020-06-10 14:52 | CON ---
[address] [address] CONSULTATION Name: AVLERIO BECK Room: [address] IN M.R.#: [id number] Admission: 06/06/20 Attend Phys: Neil Mcghee MD Discharge: 06/08/20 Date of : 51 Report #: [id number] THIS REPORT FOR: cc: Polo Badillo APRN, William R APRN Blick, David R. MD [facility] ~ DOC #: [id number] cc: Polo Badillo, WHITE WASHER-C Jose Hearn MD [facility] DATE OF CONSULTATION: 06/07/2020 CARDIOLOGY CONSULTATION HISTORY OF PRESENT ILLNESS: The patient is a 64-year-old diabetic with CAD, who was seen in the hospital today after her blood pressure elevated. The patient has a long and complicated past medical history. She apparently presented in 2011 at [facility]. She was found to have coronary artery disease and had a coronary stent placed. She was found to have evidence of cardiomyopathy and had an ICD placed at that time. The ICD generator changed in 2006 for battery elective replacement. She continues to be followed at [facility]. She was actually admitted here to [facility] in March and had several coronary stents placed by Dr. Linton even though she denied any chest pain at that time. She was found to have carotid stenosis and a week ago, underwent placement of a carotid stent at [facility]. She is doing well, but yesterday she was at home when her blood pressure was elevated. She called EMS and was brought here to [facility]. She does have occasional chest heaviness. She denies any shortness of breath, diaphoresis, palpitations, or syncope. She has had no recent discharges of her defibrillator. She denies any fever, cough or lower extremity edema. PAST MEDICAL HISTORY: Cholecystectomy, sinus surgery, cervical neck fusion. She has a history of hypertension, diabetes, and hyperlipidemia. CURRENT MEDICATIONS: Includes albuterol inhaler. She is on oxygen, aspirin, Farxiga, Lasix, glyburide, insulin, Imdur, metformin, metoprolol, Singulair, omeprazole, Brilinta. ALLERGIES: She has previous intolerance to AUGMENTIN. FAMILY HISTORY: She had two sisters who had bypass surgery. SOCIAL HISTORY: She is . She and her live in [place]. She is now retired. She quit smoking in November, but smoked for 55 years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 She is on chronic oxygen. She has COPD. No kidney disease, no cancer, no psychiatric illness. No chronic skin conditions. PHYSICAL EXAMINATION: GENERAL: Middle-aged female who appeared in no distress. VITAL SIGNS: She had a blood pressure of 120/60. HEENT: She was anicteric. Conjunctivae pink, mucosa is moist. NECK: Neck veins are not distended. She had ecchymosis over the right anterior cervical area. CHEST: Clear to auscultation. HEART: Regular rate and rhythm. ABDOMEN: Soft. EXTREMITIES: No edema. Dorsalis pedis pulse 1+ bilaterally. SKIN: Cool and dry. NEUROLOGIC: Nonfocal. DIAGNOSTIC AND IMAGING DATA: ECG showed evidence of a dual-chamber pacemaker with P-wave sensing ventricular capture. Her workup. she actually had an echocardiogram in March of this year that showed an ejection fraction of 35% with aortic sclerosis and left atrial enlargement. X-rays yesterday, she had a portable chest x-ray that showed evidence of defibrillator in place, but no acute abnormality. LABORATORY WORK: Sodium 136, creatinine 1.1. Her troponins are all less than 0.06. Her lipid profile in March, cholesterol 261, triglyceride 177, HDL 45, LDL 181. White blood cell count 9.1, hemoglobin 9.3, it was actually 9.9 in March. Her COVID antigen stat test yesterday was negative. IMPRESSION AND RECOMMENDATIONS: 1. Coronary artery disease. Multiple stents. Stents placed in March. No acute myocardial infarction. I would continue aspirin and Brilinta. 2. Cardiomyopathy. No symptoms of congestive heart failure. The patient is currently on a beta-zehra. I would consider adding an ARB or RENY inhibitor. 3. Previous implantation of defibrillator. No recent discharges. 4. Diabetes. The patient is on insulin. 5. Chronic obstructive pulmonary disease. The patient is on oxygen. 6. Previous tobacco abuse. 7. Anemia. The patient with chronic anemia. No recent bleeding. 8. Hyperlipidemia. I would recommend a statin drug, aiming for an LDL of less than 70. [place] [address] CONSULTATION Name: VALERIO BECK Room: 227-1 [facility] IN M.R.#: [id number] Admission: 06/06/20 Attend Phys: Neil Mcghee MD Discharge: 06/08/20 Date of : 51 Report #: [id number] ANASTASIYA/[place] <ELECTRONICALLY SIGNED> By: Jose Hearn MD, FACC 06/10/20 1452 0900 0219Davikailey Hearn MD, FACC /nt
== END 2020-06-08 13:19 | disposition home or self-care (01) | DRG 313 ==
LOC: M.ERS 17:51 → M.TBA-ER 21:07 → M.2W 06-07 08:37
PROVIDERS: Emergency Medicine Emergency Medical Services; ADMIT Internal Medicine; ATTEND Internal Medicine
DX: R07.89 Other chest pain (principal); I42.9 Cardiomyopathy, unspecified; M96.841 Postprocedural hematoma of a musculoskeletal structure following other procedure; S10.83XA Contusion of other specified part of neck, initial encounter; I25.119 Atherosclerotic heart disease of native coronary artery with unspecified angina pectoris; I10 Essential (primary) hypertension; E78.5 Hyperlipidemia, unspecified; D64.9 Anemia, unspecified; J44.9 Chronic obstructive pulmonary disease, unspecified; E11.40 Type 2 diabetes mellitus with diabetic neuropathy, unspecified; X58.XXXA Exposure to other specified factors, initial encounter; Z20.822 Contact with and (suspected) exposure to COVID-19; Y93.89 Activity, other specified; Y92.89 Other specified places as the place of occurrence of the external cause; Y99.8 Other external cause status; Z90.710 Acquired absence of both cervix and uterus; Z90.49 Acquired absence of other specified parts of digestive tract; Z98.1 Arthrodesis status; Z95.810 Presence of automatic (implantable) cardiac defibrillator; Z98.42 Cataract extraction status, left eye; Z98.41 Cataract extraction status, right eye; Z79.4 Long term (current) use of insulin; Z79.899 Other long term (current) drug therapy; Z79.82 Long term (current) use of aspirin; Z88.1 Allergy status to other antibiotic agents; Z88.0 Allergy status to penicillin; Z88.8 Allergy status to other drugs, medicaments and biological substances; Z95.5 Presence of coronary angioplasty implant and graft; Y83.8 Other surgical procedures as the cause of abnormal reaction of the patient, or of later complication, without mention of misadventure at the time of the procedure; Y82.8 Other medical devices associated with adverse incidents

== ENCOUNTER → 2020-07-01 | Outpatient (CLI) | payer MEDICARE | LOC: M.CT 10:31 | PROVIDERS: ATTEND Internal Medicine Critical Care Medicine | DX: R91.8 Other nonspecific abnormal finding of lung field (principal); K76.0 Fatty (change of) liver, not elsewhere classified ==

== ENCOUNTER 2020-12-24 02:01 | Inpatient (IN) | payer MEDICARE ==
[~2020-12-24] VITALS: Ht 165.1 cm; Wt 95.7 kg
[2020-12-24 02:06] VITALS: BP 161/80
[2020-12-24] MEDS ORDERED: PLAVIX 75 MG TA75 MG PO (02:11)
[2020-12-24 02:17] LABS: BE -8.8 mmol/L (-2 to +3); PO2 71.1 mmHg (75.0-100.0)
[2020-12-24 02:20] LABS: pH 7.108 (7.340-7.450)
[2020-12-24 02:22] LABS: PCO2 70.1 mmHg (35.0-45.0)
[2020-12-24 02:30] LABS: ABSOLUTE BASOPHILS 0.3 thou/uL (0.0-0.2); ABSOLUTE EOSINOPHILS 0.8 thou/uL (0.0-0.7); ABSOLUTE LYMPHOCYTES 6.7 thou/uL (0.8-5.3); ABSOLUTE MONOCYTES 1.5 thou/uL (0.0-1.2); BASOPHILS 1.4 %; EOSINOPHILS 4.1 %; HEMATOCRIT 36.3 % (37.0-47.0); HEMOGLOBIN 11.2 gm/dL (12.0-15.0); LYMPHOCYTES 34.6 %; MCH 24.2 pg (26.0-34.0); MCHC 30.8 g/dL (28.0-37.0); MCV 78.6 fL (80.0-100.0); MONOCYTES 7.6 %; MPV 7.7 fl. (7.2-11.1); NUCLEATED RBCS 0 /100WBC; PLATELET COUNT* 480 thou/uL (150-400); POLYS 52.3 %; RBC 4.62 mil/uL (4.20-5.00); RDW-CV 18.1 % (10.5-14.5); WBC 19.2 thou/uL (4.0-11.0)
[2020-12-24 02:36] LABS: CREATININE 1.3 mg/dL (0.6-1.3); POTASSIUM 3.5 mmol/L (3.5-5.1)
[2020-12-24 02:39] LABS: APTT 26.7 Seconds (25.0-31.3); PROTIME 9.9 Seconds (9.20-11.50)
[2020-12-24 02:40] LABS: ALBUMIN 3.3 g/dL (3.4-5.0); MAGNESIUM 2.3 mg/dL (1.8-2.4); TOTAL BILIRUBIN 0.2 mg/dL (<0.1-1.0)
[2020-12-24 04:04] LABS: BE -1.8 mmol/L (-2 to +3); PCO2 45.9 mmHg (35.0-45.0); pH 7.339 (7.340-7.450)
[2020-12-24 04:05] LABS: PO2 207.5 mmHg (75.0-100.0)
[2020-12-24 08:45] VITALS: BP 122/66
[2020-12-24 08:56] LABS: URINE BILIRUBIN NEGATIVE (Negative); URINE BLOOD NEGATIVE (Negative); URINE CLARITY CLEAR; URINE COLOR YELLOW; URINE GLUCOSE-RANDOM 2+ (Negative); URINE KETONES NEGATIVE (Negative); URINE LEUKOCYTES-REFLEX NEGATIVE (Negative); URINE NITRITE-REFLEX NEGATIVE (Negative); URINE PROTEIN 1+ (Negative); URINE UROBILINOGEN 0.2 E.U./dl (0.2-1.0)
[2020-12-24] MEDS ORDERED: BRILINTA60 MG PO (11:02)
[2020-12-24] MEDS ORDERED: LOPRESSOR50 PO (11:03)
--- NOTE | 2020-12-24 11:21 | EKG ---
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1955 Requested By: Dianna Gray Order Number: [id number] MD: Jose Hearn Measurements Intervals [place] Rate: 128 P: 80 RI: 104 QRS: 15 QRSD: 171 T: 92 QT: 391 QTc: 571 Interpretive Statements Atrial sensed and Ventricular-paced complexes No further analysis attempted due to paced rhythm Artifact in lead(s) I,II,aVR,aVF,V1,V2,V3,V4,V5,V6 Compared to ECG 06/06/2020 18:06:25 rate has increased Electronically Signed On 12-24-2020 11:21:29 [employer] by Jose Hearn [email or web address] <ELECTRONICALLY SIGNED> By: Jose Hearn MD, FACC 12/24/20 1121 9 9 Jose Hearn MD, [facility] /EPI
--- NOTE | 2020-12-24 11:22 | EKG ---
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1955 Requested By: Dianna Gray Order Number: [id number] MD: Jose Hearn Measurements Intervals [place] Rate: 93 P: 49 MT: 172 QRS: 20 QRSD: 135 T: 127 QT: 425 QTc: 529 Interpretive Statements Atrial-sensed ventricular-paced rhythm No further analysis attempted due to paced rhythm Compared to ECG 12/24/2020 02:10:23 rate has slowed Electronically Signed On 12-24-2020 11:22:24 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
[2020-12-24 13:00] VITALS: BP 137/91
[2020-12-24 13:38] LABS: CALCIUM 8.1 mg/dL (8.5-10.1); CREATININE 0.9 mg/dL (0.6-1.3); MAGNESIUM 1.9 mg/dL (1.8-2.4)
[2020-12-24 13:41] LABS: POTASSIUM 4.8 mmol/L (3.5-5.1)
[2020-12-24 15:15] VITALS: BP 137/91
[2020-12-24] MEDS ORDERED: FARXIGA10 MG PO (16:05)
[2020-12-24] MEDS ORDERED: ISOSORBIDE MON120 MG PO (16:07)
[2020-12-24] MEDS ORDERED: COZAAR 25 MG TA25 M2 PO (16:07)
[2020-12-24] MEDS ORDERED: ESOMEPRAZOLE MA40 MG PO (16:08)
[2020-12-24] MEDS ORDERED: VITAMIN B-121000 MC2 SUBLING (16:08)
[2020-12-24] MEDS ORDERED: DOXEPIN 10 MG C10 MG PO (16:09)
[2020-12-24] MEDS ORDERED: BROVANA15 MCG/2 M INH (16:09)
[2020-12-24] MEDS ORDERED: BUDESONIDE0.5 MG/2 M INH (16:10)
[2020-12-24] MEDS ORDERED: PROAIR HFA8.5 GM INH (16:11)
[2020-12-24] MEDS ORDERED: YUPELRI175 MCG/3 INH (16:11)
[2020-12-24] MEDS ORDERED: SIMBRINZA 1%-0.28 ML OPHTHALMIC (16:12)
[2020-12-24] MEDS ORDERED: PREDNISOLONE ACE5 ML OPHTHALMIC (16:13)
[2020-12-24 20:55] VITALS: BP 140/72
[2020-12-25 01:52] VITALS: BP 144/74
[2020-12-25 04:11] LABS: HEMOGLOBIN 10.3 gm/dL (12.0-15.0); MCH 23.8 pg (26.0-34.0); MCHC 31.1 g/dL (28.0-37.0); MCV 76.4 fL (80.0-100.0); MPV 7.6 fl. (7.2-11.1); RBC 4.32 mil/uL (4.20-5.00); RDW-CV 17.6 % (10.5-14.5); WBC 12.9 thou/uL (4.0-11.0)
[2020-12-25 04:38] LABS: ALBUMIN 3.1 g/dL (3.4-5.0); CALCIUM 8.6 mg/dL (8.5-10.1); CREATININE 0.9 mg/dL (0.6-1.3); POTASSIUM 4.4 mmol/L (3.5-5.1); TOTAL BILIRUBIN 0.2 mg/dL (<0.1-1.0); TOTAL PROTEIN 7.6 g/dL (6.4-8.2)
[2020-12-25 05:58] VITALS: BP 127/67
[2020-12-25 08:00] VITALS: BP 108/54
[2020-12-25 11:45] VITALS: BP 111/53
[2020-12-25 21:09] VITALS: BP 140/65
[2020-12-25 23:45] VITALS: BP 99/66
[2020-12-26 04:46] LABS: HEMATOCRIT 31.7 % (37.0-47.0); HEMOGLOBIN 9.8 gm/dL (12.0-15.0); MCH 23.7 pg (26.0-34.0); MCV 76.4 fL (80.0-100.0); MPV 7.5 fl. (7.2-11.1); RBC 4.14 mil/uL (4.20-5.00); RDW-CV 17.8 % (10.5-14.5); WBC 14.5 thou/uL (4.0-11.0)
[2020-12-26 05:12] LABS: ALBUMIN 3.2 g/dL (3.4-5.0); CREATININE 0.9 mg/dL (0.6-1.3); MAGNESIUM 2.1 mg/dL (1.8-2.4); POTASSIUM 4.3 mmol/L (3.5-5.1); TOTAL BILIRUBIN 0.2 mg/dL (<0.1-1.0); TOTAL PROTEIN 7.4 g/dL (6.4-8.2)
[2020-12-26 06:43] VITALS: BP 102/68
[2020-12-26 08:00] VITALS: BP 126/75
[2020-12-26 12:00] VITALS: BP 106/60
[2020-12-26 16:00] VITALS: BP 109/47
[2020-12-26 20:00] VITALS: BP 123/57
[2020-12-27 00:47] VITALS: BP 131/70
[2020-12-27 04:00] VITALS: BP 113/53
[2020-12-27 08:11] VITALS: BP 120/70
[2020-12-27 12:15] VITALS: BP 105/49
[2020-12-27 17:01] VITALS: BP 114/47
[2020-12-27 20:00] VITALS: BP 105/57
--- NOTE | 2020-12-27 20:39 | CON ---
[address] [address] CONSULTATION Name: VALERIO BECK Room: [address] IN M.R.#: [id number] Admission: 12/24/20 Attend Phys: Kaylen Sellers Discharge: Date of : 51 Report #: [id number] THIS REPORT FOR: cc: Polo Badillo APRN, William R APRN Pervez, Adeel MD ~ DATE OF CONSULTATION: 12/24/2020 REQUESTING PHYSICIAN: Dr. Valdes. INDICATION FOR CONSULTATION: COPD/chronic hypercarbic respiratory failure evaluation for rearranging Trelegy. HISTORY OF PRESENT ILLNESS: This is a 65-year-old female that I follow her in the office and seen at this hospital previously as well. The patient has a history of chronic hypercarbic and hypoxemic respiratory failure secondary to COPD as well as congestive heart failure, left ventricular ejection fraction of 35%. The patient previously has been on a CPAP many years ago for obstructive sleep apnea and more recently we had given a Trelegy device for her. The patient unfortunately felt that too much air was being blown into her face with this Trilogy device and therefore she discontinued use and this has now been picked up from her home. More recently, she has been calling our office and has been stating that the prescribed nebulizers including a beta-2 agonist as well as budesonide ordered via nebulizer is causing significant hyperglycemia and she has been debating this with my nurse. I have tried to explain to her that nebulizers including beta-2 agonist as well as inhaled corticosteroids are not likely to have any significant effect on her blood glucoses. However, she has stated that she disagrees and she therefore has not been using some of the medications precribed as ordered. The patient has now presented with acute increase in shortness of breath developing over the last few days, but particularly prominent over the last 3 hours prior to calling 911. The patient initially reported also have altered mental status. Upon initial arrival, the patient had a pH of 7.108 and a pCO2 of 70 and she was requiring 50% FiO2 with a BiPAP to maintain O2 saturation. The patient was on BiPAP during the night. She did have a favorable response. She was taken off BiPAP this morning. At the time of my evaluation, she was on 3 liters nasal cannula and was maintaining O2 saturation in the high 90s. She reported that she was more short of breath than usual and has had a cough, but not much sputum, no chest pain. Did not describe any upper respiratory complaints. There is no increase in swelling of lower extremities. There is no calf pain. She has a history of disturbed sleep at night [place] [address] CONSULTATION Name: VALERIO BECK Room: [address] IN ..#: [id number] Admission: 12/24/20 Attend Phys: aKylen Sellers Discharge: Date of : 51 Report #: [id number] the day. These symptoms remain at baseline. The patient answered to the negative for 12-point review of systems except as noted above with the exception that she stated that she had generalized weakness. PAST MEDICAL HISTORY: Chronic hypoxemic and hypercarbic respiratory failure, COPD. The patient is currently on 5 liters oxygen now while asleep. She is not on oxygen during the day. 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 SOCIAL HISTORY: An extensive history of smoking. She does says that she discontinued in late 2019. No known history of heavy alcohol use or illegal drug use. CURRENT MEDICATIONS: List in [employer] reviewed. HOME MEDICATIONS: List in [employer] reviewed. FAMILY HISTORY: There is no pertinent family history. ALLERGIES: Listed is reviewed. DESPITE THE PATIENT'S STATEMENT THAT SHE IS ALLERGIC TO CEPHALOSPORINS, but it does not appear that she is allergic to these medications with previous documentation of administration of cephalosporins without any reaction. THE PATIENT ALSO STATES THAT SHE IS ALLERGIC TO PENICILLIN, NONSTEROIDAL ANTI-INFLAMMATORY DRUGS AND A TYPE OF INSULIN LIKELY REGULAR INSULIN. PHYSICAL EXAMINATION: GENERAL: She is alert, awake and oriented, did not appear to be in any distress at this time. VITAL SIGNS: Had a pulse of 115 and a blood pressure of 137/91, was on 3 liters nasal cannula, saturating 93%, respiratory rate mildly elevated to 22, afebrile with a temperature of 36.4. Body mass index 35. HEENT: Head is normocephalic and atraumatic. Pupils are equal and reactive. There is no throat erythema. She does have a narrow airway. NECK: Does not show raised JVP, asymmetry, mass or lymph nodes. CHEST: Symmetrical expansion on inspection and palpation. On auscultation, breath sounds are bilaterally decreased with prolonged expirations. No added [address] [place] [address] CONSULTATION Name: VALERIO BECK Room: [address] IN M.R.#: [id number] Admission: 12/24/20 Attend Phys: Kaylen Sellers Discharge: Date of : 51 Report #: [id number] sounds. HEART: Regular. There is tachycardia. No murmur. ABDOMEN: Soft and nontender. EXTREMITIES: Lower extremities, trace edema, no calf tenderness. SKIN: Dry and intact. NEUROLOGIC: Moves all extremities bilaterally equally and spontaneously with no focal deficit identified. LABORATORY DATA: The patient's lab work including arterial blood gas done. COVID-19 antigen is negative. CTA chest performed this morning and a chest x-ray performed last night in [facility] and these are reviewed. ASSESSMENT AND PLAN: 1. Acute on chronic hypoxemic/hypercarbic respiratory failure. Unfortunately, the patient previously was not able to tolerate Trelegy. The patient states that several years ago, she used to have a CPAP for obstructive sleep apnea and discontinued use of it also; however, did have a better tolerance than Trelegy. She asked if we can set up a CPAP for her again, I did explain to her that I would expect her hypercarbic respiratory failure to improve; however, I would not expect full control unless we placed her again on a Trelegy or Astral device. I did go ahead and ordered a BiPAP and AVAPS mode for tonight in settings which are lower than the Trelegy settings she had at home. We will see if she is able to tolerate BiPAP with these lower settings. If this is the case, then I would recommend arranging a Trelegy or Astral device for her prior to her discharge. If this is not the case, then we can arrange a CPAP for her per her insurance requirements. She would need a sleep study before the same is approved and as above, I would only expect partial controlled with CPAP. Meanwhile, the patient was on 5 liters oxygen while asleep and not on oxygen during the daytime prior to admission. Ambulatory pulse oximetry recently was borderline. Certainly we can evaluate for oxygen during ambulation before discharge as well; however arranging a Trelegy for her as above, appears to be more important. 2. Chronic obstructive pulmonary disease exacerbation. Unfortunately, the patient thinks that her nebulizers increase her blood glucoses and therefore she has been noncompliant with these as above. I again explained to her that I would not expect any significant change in blood glucoses with nebulizers; however, I would again recommend continuing with budesonide as well as Brovana while via nebulizer long-term. She is on a long-acting anticholinergic agent via nebulizer at home as well. For now, I will give her ipratropium. Upon discharge, recommend restarting her home long-acting agent. Recommend also starting Singulair. Due to significant tachycardia, switched her albuterol [place] [address] CONSULTATION Name: KIRANVALERIO Pedro Room: [address] IN ..#: [id number] Admission: 12/24/20 Attend Phys: Kaylen Sellers Discharge: Date of : 51 Report #: [id number] For now, the patient in fact does need Solu-Medrol and this would increase her blood glucoses, could be tapered in a.m. if she continues to improve. There are some mild ground glass infiltrates noted bilaterally. This is likely secondary to mild increase in pulmonary vascular congestion; however, atypical infiltrates will be possible. Therefore, I agree with [place]. Note that the patient previously has had COVID-19. Also, her COVID-19 antigen is negative and therefore COVID-19 appears likely and I did not investigated further at this time. 3. Chronic systolic congestive heart failure with left ventricular ejection fraction 35%. She is mildly fluid overloaded as she received IV dye. I did not order more diuresis at this time. She is on daily p.o. Lasix. Suggest evaluation regarding whether she needs more diuresis tomorrow. 4. Lung nodule. This is stable compared with a previous CT. We will plan on only doing a followup CT later. 5. Mild mediastinal lymphadenopathy. She has had mild lymphadenopathy previously as well, which had then resolved and is now noted again. I will also only plan to order a followup CT for this as well. 6. Diabetes. See discussion above. 7. Elevated D-dimer. I also ordered venous Dopplers, although suspicion is low. CTA chest was negative. 8. Deep venous thrombosis prophylaxis, on Lovenox, also noted to be on Plavix. 9. Clostridium difficile prophylaxis, Lactinex. Thanks for this consultation. <ELECTRONICALLY SIGNED> By: Lopez Dennis MD 12/27/202038 09 Shey Dennis MD /nt
[2020-12-28] VITALS: BP 138/63
[2020-12-28 04:00] VITALS: BP 110/56
[2020-12-28 08:30] VITALS: BP 109/56
[2020-12-28] MEDS ORDERED: LEVOFLOXACIN500 MG PO (09:19)
[2020-12-28] MEDS ORDERED: XANAX 0.25 MG0.25 MG PO (09:19)
[2020-12-28] MEDS ORDERED: PREDNISONE 10 M10 M1 PO (09:19)
[2020-12-28 13:55] VITALS: BP 109/56
== END 2020-12-28 14:00 | disposition home or self-care (01) | DRG 177 ==
LOC: M.ERS 02:01 → M.TBA-ER 04:52 → M.2W 15:40
PROVIDERS: Internal Medicine; Internal Medicine Critical Care Medicine; Personal Emergency Response Attendant; ADMIT Internal Medicine; ATTEND Internal Medicine
PROC: 5A09357 Assistance with Respiratory Ventilation, Less than 24 Consecutive Hours, Continuous Positive Airway Pressure (ICD-10-PCS; principal; 2020-12-24)
PROC: 5A09357 Assistance with Respiratory Ventilation, Less than 24 Consecutive Hours, Continuous Positive Airway Pressure (ICD-10-PCS; 2020-12-25)
PROC: 5A09357 Assistance with Respiratory Ventilation, Less than 24 Consecutive Hours, Continuous Positive Airway Pressure (ICD-10-PCS; 2020-12-26)
PROC: 5A09357 Assistance with Respiratory Ventilation, Less than 24 Consecutive Hours, Continuous Positive Airway Pressure (ICD-10-PCS; 2020-12-27)
DX: J15.6 Pneumonia due to other Gram-negative bacteria (principal); J96.21 Acute and chronic respiratory failure with hypoxia; R65.11 Systemic inflammatory response syndrome (SIRS) of non-infectious origin with acute organ dysfunction; J96.22 Acute and chronic respiratory failure with hypercapnia; J44.0 Chronic obstructive pulmonary disease with (acute) lower respiratory infection; J44.1 Chronic obstructive pulmonary disease with (acute) exacerbation; I50.22 Chronic systolic (congestive) heart failure; Z20.822 Contact with and (suspected) exposure to COVID-19; Z79.899 Other long term (current) drug therapy; E11.65 Type 2 diabetes mellitus with hyperglycemia; Z79.4 Long term (current) use of insulin; I11.0 Hypertensive heart disease with heart failure; E11.40 Type 2 diabetes mellitus with diabetic neuropathy, unspecified; Z86.73 Personal history of transient ischemic attack (TIA), and cerebral infarction without residual deficits; Z88.0 Allergy status to penicillin; Z88.8 Allergy status to other drugs, medicaments and biological substances; I25.10 Atherosclerotic heart disease of native coronary artery without angina pectoris

== ENCOUNTER → 2021-01-13 | Outpatient (CLI) | payer MEDICARE ==
[~2021-01-13] MED LIST changes: +BRILINTA60 MG PO; +BROVANA15 MCG/2 M INH; +BUDESONIDE0.5 MG/2 M INH; +COZAAR 25 MG TA25 M2 PO; +DOXEPIN 10 MG C10 MG PO; +ESOMEPRAZOLE MA40 MG PO; +FARXIGA10 MG PO; +ISOSORBIDE MON120 MG PO; +LOPRESSOR50 PO; +PREDNISOLONE ACE5 ML OPHTHALMIC; +PREDNISONE 10 M10 M1 PO; +SIMBRINZA 1%-0.28 ML OPHTHALMIC; +VITAMIN B-121000 MC2 SUBLING; +XANAX 0.25 MG0.25 MG PO; +YUPELRI175 MCG/3 INH
== END ==
LOC: M.CT 07:35
PROVIDERS: ATTEND Internal Medicine Critical Care Medicine
DX: J90 Pleural effusion, not elsewhere classified (principal); J98.11 Atelectasis; R91.1 Solitary pulmonary nodule

== ENCOUNTER → 2021-03-03 | Outpatient (CLI) | payer MEDICARE ==
[~2021-03-03] VITALS: Ht 167.6 cm; Wt 85.7 kg
[~2021-03-03] MED LIST changes: +ALBUTEROL2.5 MG/31 INH; +ARTHRITIS PAIN100 GM TOP; +COSOPT OCUMETER10 M1 EA. EYE; +ISORDIL10 MG PO; +ISOSORBIDE DINI30 MG PO; +NEXIUM 40 MG CA40 M1 PO; +ONDANSETRON HCL4 M2 PO; +TOPROL XL25 MG PO
[2021-03-03 11:26] VITALS: BP 94/45
[2021-03-03 11:26] LABS: HEMATOCRIT 34.9 % (37.0-47.0); HEMOGLOBIN 11.1 gm/dL (12.0-15.0); MCH 23.3 pg (26.0-34.0); MCHC 31.9 g/dL (28.0-37.0); MCV 73.1 fL (80.0-100.0); MPV 7.6 fl. (7.2-11.1); RBC 4.78 mil/uL (4.20-5.00); RDW-CV 16.9 % (10.5-14.5); WBC 11.6 thou/uL (4.0-11.0)
[2021-03-03 11:35] LABS: CALCIUM 9.8 mg/dL (8.5-10.1)
[2021-03-03 11:38] LABS: APTT 26.5 Seconds (25.0-31.3); PROTIME 10.3 Seconds (9.20-11.50)
[2021-03-03 11:40] LABS: ALBUMIN 3.8 g/dL (3.4-5.0); TOTAL BILIRUBIN 0.3 mg/dL (<0.1-1.0)
[2021-03-03 14:43] VITALS: BP 104/59
[2021-03-03 15:00] VITALS: BP 108/43
[2021-03-03 15:15] VITALS: BP 119/47
--- NOTE | 2021-03-03 18:00 | CARD ---
[address] [address] CARDIAC CATH REPORT Name: VALERIO BECK Room: [facility].#: [id number] Admission: 03/03/21 Attend Phys: George Jorge MD Discharge: Date of : 51 Report #: [id number] THIS REPORT FOR: cc: Polo Badillo APRN, William R APRN Liston, Michael J. MD [facility] ~ APPROVED REPORT Study performed: 03/03/2021 12:51:53 Patient Status: Out-Patient Room #: Event Personnel: Dr. George Jorge, Rachid Langston FLARER, Brenda Adame RN Exam: Generator Change for a Bi-Ventricular Permanent Pacemaker Indications: Pacing ICD generator at elective replacement The patient is a 65 year-old female with a history of Biventricular ICD placement for HAIR SAMPLE MATCHER and primary prevention. Intraoperative Conscious Sedation Sedation start time: 1324 Case end Time: 1346 Fentanyl 50.0 mcg Versed 2.0 mg Implanted Devices: Claria MRI HAIR SAMPLE MATCHER-D SureScan, Model DTM 1D4, Ser# [id number] Exp Date: 08/25/2021 Procedure After explaining the risks, benefits, and alternative options, informed consent was obtained from the patient. The patient was brought to the cardiac catheterization lab and the left chest and shoulder were prepped and draped in the usual fashion. IV conscious sedation was used throughout procedure with appropriate monitoring and was performed in the presence of a registered nurse who was an independent trained observer other than the physician performing the procedure. Local anesthesia was achieved with 1% lidocaine. Next an incision was made over the existing generator. The generator was explanted using electrocautery and blunt dissection. The device pocket was flushed with antibiotic solution. The existing generator was detached from the atrial, left ventricular and right ventricular pacing ICD leads. The new [place] [address] CARDIAC CATH REPORT Name: VALERIO BECK [id number] Admission: 03/03/21 Attend Phys: George Jorge MD Discharge: Date of : 51 Report #: [id number] leads. The device and redundant leads were then placed within the device pocket. The deep tissues were closed using interrupted stitches of 2-0 Vicryl. The skin incision was then closed with a single subcuticular stitch of 4-0 Vicryl. Several Steri-Strips were placed across the incision. A sterile Telfa dressing was then covered with a Tegaderm. Complications The patient tolerated the procedure well and there were no complications associated with the procedure. Findings Right atrial pacing threshold was 0.75 V@0.40 ms. RV pacing threshold was 0.75 V@0.40 ms. LV pacing threshold was 3.5 V@0.9 ms. This is chronic. Right atrial pacing impedance 342 ohms. Right ventricular pacing impedance 456 ohms. LV pacing impedance 589 ohms. The sensed R wave was 7.5 mV. The sensed P wave was 5.5 mV. Conclusion 1. Biventricular ICD pacing generator at elective replacement. 2. Successful replacement of biventricular ICD pacing generator. Recommendations 1. Follow-up site check in 1 week. 2. Follow-up device interrogation in 4 to 6 weeks. <ELECTRONICALLY SIGNED> By: George Jorge MD, FACC 03/03/21 1800 1800 1800[facility] centerjesus Jorge MD, FACC /INF
== END | disposition home or self-care (01) ==
LOC: M.CL 10:02
PROVIDERS: ATTEND Internal Medicine Cardiovascular Disease
DX: Z45.02 Encounter for adjustment and management of automatic implantable cardiac defibrillator (principal); I42.9 Cardiomyopathy, unspecified; E11.9 Type 2 diabetes mellitus without complications; J44.9 Chronic obstructive pulmonary disease, unspecified; G47.33 Obstructive sleep apnea (adult) (pediatric); K21.9 Gastro-esophageal reflux disease without esophagitis; I25.10 Atherosclerotic heart disease of native coronary artery without angina pectoris; I25.2 Old myocardial infarction; Z98.890 Other specified postprocedural states; Z79.899 Other long term (current) drug therapy; Z88.0 Allergy status to penicillin; Z88.8 Allergy status to other drugs, medicaments and biological substances; Z79.01 Long term (current) use of anticoagulants